=== PATIENT | female | born 1945 | race Caucasian/White ===

== ENCOUNTER 2019-05-12 23:38 | Inpatient (IN) ==
[2019-05-12] MEDS ORDERED: *HR* FentaNYL (PF) 100 MCG/2 ML VIAL IVP ONE (23:55)
[2019-05-12] MEDS ORDERED: Ondansetron 4 MG/2 ML VIAL IVP ONE (23:55)
--- NOTE | 2019-05-12 23:58 | Emergency Department Note ---
Disposition Clinical Impression: Renal colic on right side, Pyelonephritis Disposition: Admitted As Inpatient Condition: Fair Referrals: Muriel Bardales MD [Primary Care Provider] - Forms: ED Satisfaction Letter, Work/School Release Time of Disposition: 02:24 Back Pain HPI - General Chief Complaint: ED Abdominal Pain Stated Complaint: right flank pain Time Seen by Provider: 05/12/19 23:50 Source: patient, EMS Mode of arrival: EMS Limitations: no limitations Nursing Notes Reviewed: Yes Vital Signs Reviewed: Yes - History of Present Illness HPI Narrative: Patient with atraumatic right sided flank pain radiating to her right hem iabdomen that started approximately 90 minutes ago. States she has never had pain like this before. Associated nausea. She denies other acute GI/ symptoms. Pt Subjective Complaint: back pain Onset (ago): hour(s) Duration: constant Location: right flank Pain Severity: severe Improves with: none Worsens with: none - Related Data Home Medications Medication Instructions Recorded Confirmed Aspirin [Lo-Dose Aspirin EC] 81 mg PO DAILY 06/14/16 05/12/19 Atorvastatin Calcium [Lipitor] 80 mg PO HS 06/14/16 05/12/19 Clopidogrel [Plavix] 75 mg PO DAILY 06/14/16 05/12/19 Duloxetine HCl [Cymbalta] 60 mg PO DAILY 06/14/16 05/12/19 Gabapentin [Neurontin] 600 mg PO TID 06/14/16 05/12/19 Lansoprazole [Prevacid] 30 mg PO QAM 06/14/16 05/12/19 Levothyroxine [Synthroid] 50 mcg PO DAILY 06/14/16 05/12/19 Linagliptin [Tradjenta] 5 mg PO DAILY 06/14/16 05/12/19 Lisinopril [Zestril] 5 mg PO DAILY 06/14/16 05/12/19 Metoprolol XL (24 HR) Succ [Toprol 12.5 mg PO DAILY 06/14/16 05/12/19 XL] Nitroglycerin [Nitrostat] 0.4 mg SL Q5M PRN 06/14/16 05/12/19 Primidone [Mysoline] 50 mg PO BID 06/14/16 05/12/19 metFORMIN [Glucophage] 500 mg PO BIDWM 06/14/16 05/12/19 Allergies Allergy/AdvReac Type Severity Reaction Status Date / Time Iodinated Contrast- Oral and Allergy Anaphylaxis Verified 06/14/16 14:04 IV Dye [Iodinated Contrast Media - IV Dye] levofloxacin [From Levaquin] Allergy Hives Verified 06/14/16 14:04 All systems ED: reviewed and negative except as stated. Constitutional: Reports: as per HPI Eyes: Reports: as per HPI ENT ED: Reports: as per HPI Cardiovascular: Reports: as per HPI Gastrointestinal: Reports: abdominal pain, nausea Genitourinary: Reports: as per HPI Musculoskeletal: Reports: back pain Integumentary: Reports: as per HPI Neurological: Reports: as per HPI Psychiatric: Reports: as per HPI Endocrine: Reports: as per HPI Hematological/Lymphatic: Reports: as per HPI Allergic/Immunologic: Reports: as per HPI Past Medical History - Past Medical History Source: patient Medical history: Reports: diabetes, GERD, hyperlipidemia, hypertension Surgical history: Reports: appendectomy, coronary bypass (CABG), hysterectomy Psychiatric history: Reports: no psych history [employer]GRAM[employer] history: Reports: non-contributory - Social History Smoking Status: Never smoker Smokeless Tobacco Status: No Alcohol use: Reports: none Drug use: Reports: none Physical Exam Uncomfortable appearing - General Limitations: no limitations General appearance: alert, anxious - Head Head exam: atraumatic - Eye Eye exam: Present: normal appearance - ENT ENT exam: normal exam - Neck Neck exam: Present: normal inspection, full ROM - Chest Chest inspection: Present: normal inspection, symmetric chest wall rise - Respiratory Respiratory exam: Present: normal lung sounds bilaterally - Cardiovascular Cardiovascular exam: Present: regular rate, normal rhythm - Abdominal Exam Abdominal exam: Present: soft, tenderness (Mild right upper quadrant tenderness without guarding, rebound, rigidity) - Rectal Exam Rectal exam: Present: deferred - Extremities Exam Extremities exam: Present: other (Right lower extremity in a brace) - Neurological Exam Neurological exam: Present: alert, oriented X3, CN II-XII intact - Psychiatric Psychiatric exam: Present: anxious - Skin Skin exam: Present: warm, dry, intact Course Course Narrative: Patient presents to emergency department with right flank pain. Her symptoms are most consistent with renal colic. Noncontrast CT of her abdomen and pelvis ordered for further evaluation. The patient was offered analgesics. She will be closely reassessed - Reevaluation(s) Reevaluation #1: Patient improved. Patient requested ice chips Time: 01:32 Reevaluation #2: Test results discussed with patient. I am uncertain if her symptoms represent pyelonephritis, ureteral stricture, versus radiolucent stone or nonvisualized radiographic stone. I will treat empirically with antibiotics and admit Vital Signs Temperature 97.6 F 05/12/19 23:39 Pulse Rate 66 05/12/19 23:39 Respiratory Rate 14 05/12/19 23:39 Blood Pressure 143/91 05/12/19 23:39 O2 Sat by Pulse Oximetry 97 05/12/19 23:39 Temperature 97.6 F 05/12/19 23:39 Pulse Rate 65 05/13/19 00:44 Respiratory Rate 14 05/13/19 00:44 Blood Pressure 161/76 05/13/19 00:44 O2 Sat by Pulse Oximetry 96 05/13/19 00:44 Oxygen Delivery Oxygen Delivery Room Air Back Pain/Injury - Lab Data Lab results reviewed: Yes I reviewed the patient's lab results. Result diagrams: 05/13/19 00:55 05/13/19 00:55 Lab Results 05/13/19 05/13/19 05/13/19 Range/Units 00:41 00:55 00:55 WBC 10.5 (4.3-11.1) K/mcL RBC 3.56 L (3.82-4.97) M/mcL Hgb 10.2 L (11.5-15.4) g/dL Hct 31.9 L (35.3-44.9) % MCV 89.6 (83.0-100.0) fL MCH 28.7 (28.0-33.3) pg MCHC 32.0 (31.6-35.5) g/dL RDW 15.3 H (11.5-14.5) % Plt Count 207 (140-400) K/mcL MPV 9.1 L (9.4-12.4) fL Immature Gran % 0.5 (0-4) % Seg Neutrophils % 81.2 % Lymphocytes % 11.5 % Monocytes % 5.0 % Eosinophils % 1.3 % Basophils % 0.5 % Neutrophils # 8.5 (1.6-8.9) K/mcL Lymphocytes # 1.2 (0.6-4.6) K/mcL Monocytes # 0.5 (0.0-1.3) K/mcL Eosinophils # 0.1 (0.0-0.6) K/mcL Basophils # 0.1 (0.0-0.2) K/mcL Sodium 135 L (136-145) mEq/L Potassium 4.7 (3.5-5.1) mEq/L Chloride 105 (98-107) mEq/L Carbon Dioxide 19 L (23-29) mEq/L BUN 16 (8-23) mg/dL Creatinine 1.14 (0.60-1.20) mg/dL Est GFR ( Amer) 57 L (> 60) Est GFR (Non-Af Amer) 47 L (> 60) BUN/Creatinine Ratio 14 (6-26) Glucose 274 H (70-105) mg/dL Calculated Osmolality 291 (280-300) Calcium 9.1 (8.6-10.3) mg/dL Total Bilirubin 0.4 (0.3-1.0) mg/dL AST 22 (13-39) Units/L ALT 20 (7-52) Units/L Alkaline Phosphatase 74 (34-104) Units/L Serum Total Protein 7.6 (6.4-8.9) g/dL Albumin 3.9 (3.5-5.7) g/dL Globulin 3.7 H (2.4-3.5) g/dL Albumin/Globulin Ratio 1.1 (1.1-2.2) Lipase 81 (11-82) Units/L Urine Color Yellow (Yellow) Urine Clarity Turbid A (Clear) Urine pH 5.0 (5.0-8.0) pH Units Ur Specific [place] 1.028 H (1.010-1.025) Urine Protein Trace (Neg-Trace) mg/dL Urine Glucose (UA) 100 H (Normal) mg/dL Urine Ketones Negative (Negative) mg/dL Urine Blood Large H (Negative) Urine Nitrite Positive A (Negative) Urine Bilirubin Negative (Negative) Urine Urobilinogen Normal (Normal) mg/dL Ur Leukocyte Esterase Large H (Negative) Urine Microscopic RBC TNTC H (0-3) per hpf Urine Microscopic WBC TNTC H (0-3) per hpf Ur Squamous Epith Cells Many H (None-Few) per lpf Urine Bacteria Many H (None-Few) per hpf Hyaline Casts Few (None-Few) per lpf - Radiology Data Radiology results reviewed: Yes I reviewed the patient's radiology results.
[2019-05-13 00:55] LABS: Bilirubin,Urine Negative (Negative); Blood,Urine Large (Negative); Clarity,Urine Turbid (Clear); Color,Urine Yellow (Yellow); Glucose,Urine (UA) 100 mg/dL (Normal); Ketones,Urine Negative (Negative); Leukocyte Esterase,Urine Large (Negative); Nitrite,Urine Positive (Negative); Protein,Urine Trace mg/dL (Neg-Trace); Specific Gravity,Urine 1.028 (1.010-1.025); Urobilinogen,Urine Normal (Normal)
[2019-05-13 00:56] LABS: Bacteria,Urine Many per hpf (None-Few); Hyaline Casts,Urine Few per lpf (None-Few); RBC,Urine TNTC per hpf (0-3); Squamous Epithelial Cell,Urine Many per lpf (None-Few); WBC,Urine TNTC per hpf (0-3)
[2019-05-13 02:02] LABS: Basophils # 0.1 K/mcL (0.0-0.2); Basophils % 0.5 %; Eosinophils # 0.1 K/mcL (0.0-0.6); Eosinophils % 1.3 %; Hematocrit 31.9 % (35.3-44.9); Hemoglobin 10.2 g/dL (11.5-15.4); Immature Granulocytes % 0.5 % (0-4); Lymphocytes # 1.2 K/mcL (0.6-4.6); Lymphocytes % 11.5 %; Mean Corpuscular Hemoglobin 28.7 pg (28.0-33.3); Mean Corpuscular Volume 89.6 fL (83.0-100.0); Mean Platelet Volume 9.1 fL (9.4-12.4); Monocytes # 0.5 K/mcL (0.0-1.3); Neutrophils # 8.5 K/mcL (1.6-8.9); Platelet Count 207 K/mcL (140-400); Red Blood Count 3.56 M/mcL (3.82-4.97); Red Cell Distribution Width 15.3 % (11.5-14.5); Segmented Neutrophils % 81.2 %; White Blood Count 10.5 K/mcL (4.3-11.1)
[2019-05-13 02:04] LABS: Albumin 3.9 g/dL (3.5-5.7); Albumin/Globulin Ratio 1.1 (1.1-2.2); Bilirubin,Total 0.4 mg/dL (0.3-1.0); Calcium 9.1 mg/dL (8.6-10.3); Globulin 3.7 g/dL (2.4-3.5); Potassium 4.7 mEq/L (3.5-5.1); Total Protein 7.6 g/dL (6.4-8.9)
[2019-05-13] MEDS ORDERED: cefTRIAXone 1,000 MG in Water for inj. (sterile) 10 ML IVP ONE (02:22)
[2019-05-13] MEDS ORDERED: Ketorolac 15 MG/ML VIAL IVP ONE (03:07)
[2019-05-13] MEDS ORDERED: Acetaminophen 325 MG TABLET PO PRN (05:44)
[2019-05-13] MEDS ORDERED: Dextrose Gel 15 GM/37.5 ML TUBE PO PRN ×4 (05:44→18:03)
[2019-05-13] MEDS ORDERED: D5% in Water 1,000 ML IVC PRN ×2 (05:44→18:03)
[2019-05-13] MEDS ORDERED: Naloxone 0.4 MG/ML INJ IVP PRN ×2 (05:44→18:03)
[2019-05-13] MEDS ORDERED: Ondansetron 4 MG/2 ML VIAL IVP PRN ×2 (05:44→18:03)
[2019-05-13] MEDS ORDERED: *HR* HYDROcodone/Acet 5/325 mg TABLET PO PRN (05:44)
[2019-05-13] MEDS ORDERED: *HR* Dextrose 50 % in Water (Syg) 50 ML SYRINGE IVP PRN ×2 (05:44→18:03)
[2019-05-13] MEDS ORDERED: 0.9 % Sodium Chloride 1,000 ML IVC SCH (05:45)
[2019-05-13] MEDS ORDERED: Nitroglycerin 0.4 MG TAB.SUBL SL PRN ×2 (05:50→18:03)
--- NOTE | 2019-05-13 06:01 | Internal Med History&Physical ---
Date of Encounter: 05/13/19 Time of Encounter: 05:05 Internal Medicine - H&P: HPI Chief complaint: flank pain Admitted From: Emergency Dept Plans for Post Hospital Care: Home History of present illness: Ms. Ortiz is a 73 year old female who presents with complaints of abrupt onset of flank pain at 10 pm last night. Pain was associated with nausea, vomiting, dysuria, and fevers and chills. Pain was unbearable, and so she came to ER. Pain subsided ever since. Workup in ER revealed patient to have hydronephrosis with findings compatible with pyelonephritis and likely urolithiasis that was passed. CT imaging confirmed the hydronephrosis and inflammatory changes. There was no stone noted on CT, and it was presumed to have passed. She was therefore admitted to hospitalist service. Upon my assessment of the patient, patient still has some subtle flank pain but feels much better than she did prior to presentation in the ER. She reports she has had some subjective fevers and chills just since last night. She has had nausea and vomiting. She had no diarrhea. She has no cough. She has never had any kidney stones before. She does not have recurrent UTI. Past Med Surg Social Fam HX - Past Medical History Attestation: Yes The following information was validated with the patient. Source: patient, old records reviewed Medical history: diabetes, GERD, hyperlipidemia, hypertension Psychiatric history: no psych history - Past Surgical History Surgical History: appendectomy, coronary bypass (CABG), hysterectomy Additional surgical history: tonsillectomy, back stim - Social History Smoking Status: Never smoker Smokeless Tobacco Status: No Alcohol use: none Drug use: none Current living situation: Home, With Family Activity Level: Independent ambulation Recent Out of Country Travel Within the Last 8 Weeks: No - Family History Mother Living Status: Hx Family Cardiac Disorders: Yes (HTN) Hx Family Respiratory Disorders: No Hx Family Cancer: No Hx Family GI Disorders: No Hx Family Endocrine Disorder: Yes (DM) Hx Family Neuromuscular Disorders: No Hx Family Neurologic Disorders: No Hx Family HEENT Disorders: No Hx Family Autoimmune Disorders: No Father Living Status: Hx Family Cardiac Disorders: Yes (CAD) Hx Family Respiratory Disorders: No Hx Family Cancer: No Hx Family GI Disorders: No Hx Family Endocrine Disorder: No Hx Family Neuromuscular Disorders: No Hx Family Neurologic Disorders: No Hx Family HEENT Disorders: No Hx Family Autoimmune Disorders: No Internal Medicine - H&P: Meds Aspirin [Lo-Dose Aspirin EC] 81 mg PO DAILY 06/14/16 [History] Atorvastatin Calcium [Lipitor] 80 mg PO HS 06/14/16 [History] Clopidogrel [Plavix] 75 mg PO DAILY 06/14/16 [History] Duloxetine HCl [Cymbalta] 60 mg PO DAILY 06/14/16 [History] Gabapentin [Neurontin] 600 mg PO TID 06/14/16 [History] Lansoprazole [Prevacid] 30 mg PO QAM 06/14/16 [History] Levothyroxine [Synthroid] 50 mcg PO DAILY 06/14/16 [History] Linagliptin [Tradjenta] 5 mg PO DAILY 06/14/16 [History] Lisinopril [Zestril] 5 mg PO DAILY 06/14/16 [History] Metoprolol XL (24 HR) Succ [Toprol XL] 12.5 mg PO DAILY 06/14/16 [History] Nitroglycerin [Nitrostat] 0.4 mg SL Q5M PRN 06/14/16 [History] Primidone [Mysoline] 50 mg PO BID 06/14/16 [History] metFORMIN [Glucophage] 500 mg PO BIDWM 06/14/16 [History] Allergy/AdvReac Type Severity Reaction Status Date / Time Iodinated Contrast- Oral and Allergy Anaphylaxis Verified 06/14/16 14:04 IV Dye [Iodinated Contrast Media - IV Dye] levofloxacin [From Levaquin] Allergy Hives Verified 06/14/16 14:04 - Constitutional Constitutional: chills, fever(s), no night sweats - EENT Eyes: no blurry vision, no change in vision Ears: no ear pain, no tinnitus Nose, mouth and throat: no nasal congestion, no sinus pressure, no sore throat - Cardiovascular Cardiovascular ROS IM: diaphoresis, no chest pain, no dyspnea, no orthopnea, no syncope - Respiratory Respiratory: no cough, no dyspnea, no hemoptysis, no chest congestion, no excessive phlegm production, no pain with cough - Gastrointestinal Gastrointestinal: nausea, vomiting, no abdominal pain, no diarrhea, no hematemesis, no hematochezia, no melena - Genitourinary Genitourinary: dysuria, flank pain, no hematuria - Musculoskeletal Musculoskeletal ROS IM: no arthralgias, no back pain - Integumentary Integumentary IM: no rash, no jaundice - Neurological Neurological ROS: no dizziness, no focal weakness, no frequent falls, no headache(s) - Psychiatric Psychiatric: no anxiety, no confusion - Endocrine Endocrine IM: no polydipsia, no polyuria - Hematologic/Lymphatic Hematologic/Lymphatic: no lymphadenopathy - Allergic/Immunologic Allergic/Immunologic: no GI upset with certain foods - Constitutional Vitals: Temp Pulse Resp BP Pulse Ox 98.8 F 84 16 156/76 96 05/13/19 04:05 05/13/19 04:05 05/13/19 04:05 05/13/19 04:05 05/13/19 04:05 General appearance: Present: cooperative, mild distress, A&O X 3, pleasant, answers questions appropriately Exam: minimal flank pain currently - Head Head exam: Present: atraumatic, normal inspection - Eye Eye exam: Present: EOMI, PERRL. Absent: scleral icterus Pupils: Present: normal accommodation - ENT ENT exam: Present: mucous membranes dry, normal exam, normal oropharynx - Neck Neck exam general surgery: Present: full ROM, supple, trachea midline. Absent: tenderness, nuchal rigidity, thyromegaly - Respiratory Respiratory exam: Present: CTAB. Absent: chest wall tenderness, rales, rhonchi, wheezes - Cardiovascular Cardiovascular exam: Present: irregular rhythm, +S1, +S2. Absent: diastolic murmur, systolic murmur - GI/Abdominal GI/Abdominal exam: Present: normal bowel sounds, tenderness (mild right sided). Absent: guarding, hepatomegaly, mass, rebound, splenomegaly - Back Exam Back exam: Present: CVA tenderness (R), normal inspection. Absent: CVA tenderness (L) - Neurological Exam Neurological exam: Present: alert, CN II-XII intact, oriented X3, reflexes normal, no focal deficits, strengths equal and symetr throughout - Psychiatric Psychiatric exam: Present: normal affect, normal mood - Skin Skin exam: Present: dry, intact, warm Internal Med - H&P Results - Labs CBC & Chem 7: 05/13/19 00:55 05/13/19 00:55 Labs: Short CBC 05/13/19 Range/Units 00:55 WBC 10.5 (4.3-11.1) K/mcL Hgb 10.2 L (11.5-15.4) g/dL Hct 31.9 L (35.3-44.9) % Plt Count 207 (140-400) K/mcL Neutrophils # 8.5 (1.6-8.9) K/mcL BMP 05/13/19 00:55 Sodium 135 L Potassium 4.7 Chloride 105 Carbon Dioxide 19 L BUN 16 Creatinine 1.14 Glucose 274 H Calcium 9.1 Liver Function 05/13/19 Range/Units 00:55 Total Bilirubin 0.4 (0.3-1.0) mg/dL AST 22 (13-39) Units/L ALT 20 (7-52) Units/L Alkaline Phosphatase 74 (34-104) Units/L Albumin 3.9 (3.5-5.7) g/dL Urine 05/13/19 Range/Units 00:41 Urine Color Yellow (Yellow) Urine Clarity Turbid A (Clear) Urine pH 5.0 (5.0-8.0) pH Units Ur Specific [place] 1.028 H (1.010-1.025) Urine Protein Trace (Neg-Trace) mg/dL Urine Glucose (UA) 100 H (Normal) mg/dL - Impressions ITS Impressions Abdomen/Pelvis CT 05/13/19 23:54 IMPRESSION: Right hydronephrosis and right hydroureter without calcified ureteral stone. There is questionable increased soft tissue attenuation in the region of the right ureterovesical junction which could be related to edema. Correlation for recently passed stone versus obstruction by noncalcified stone, stricture or mass is recommended. Left nephrolithiasis. D/ / Yajaira Laughlin Cha, MD / Yajaira Laughlin Cha, MD Interpreting Provider: Yajaira Laughlin Cha, MD - Diagnostic Studies CT scan - abdomen Status: image reviewed by me (right hydronephrosis ) - Assessment and Plan (1) Pyelonephritis Current Visit: Yes Status: Acute Assessment and plan: 1. Culture urine. 2. Rocephin 2 grams IV daily. 3. Follow culture results and clinical picture. 4. IVF hydration and anti-emetics PRN. (2) Urolithiasis Current Visit: Yes Status: Suspected Assessment and plan: 1. Consult urology for suspected urolithiasis. 2. Need follow up regarding the hydronephrosis. 3. Care as above. Qualifiers: Urinary calculus location: other lower urinary tract location Qualified Code(s): N21.8 - Other lower urinary tract calculus (3) CAD (coronary artery disease) Current Visit: Yes Status: Chronic Assessment and plan: 1. NO signs of active angina. 2. Continue home meds as appropriate and monitor clinically. Qualifiers: Coronary Disease-Associated Artery/Lesion type: bypass graft [place] vs. transplanted heart: [place] heart Associated angina: without angina Qualified Code(s): I25.810 - Atherosclerosis of coronary artery bypass graft(s) without angina pectoris (4) DM2 (diabetes mellitus, type 2) Current Visit: Yes Status: Chronic Assessment and plan: 1. Hold oral home meds and order SSI. 2. Monitor glucose and adjust insulin dosing as necessary. Qualifiers: Diabetes mellitus continuous churn buttermaker insulin use: without jail use Diabetes mellitus complication status: without complication Qualified Code(s): E11.9 - Type 2 diabetes mellitus without complications (5) DVT prophylaxis Current Visit: Yes Status: Acute Assessment and plan: 1. EPCD's.
[2019-05-13] MEDS ORDERED: Aspirin Enteric Coated 81 MG Tablet PO SCH (09:00)
[2019-05-13] MEDS ORDERED: Metoprolol XL (24 HR) Succ 25 MG TAB.ER.24H PO SCH (09:00)
[2019-05-13] MEDS ORDERED: Primidone 50 MG TABLET PO SCH (09:00)
[2019-05-13] MEDS ORDERED: Gabapentin 300 MG CAPSULE PO SCH (09:00)
--- NOTE | 2019-05-13 09:37 | Urology - Consult Note ---
<Mony Frye N - Last Filed: 05/13/19 09:33> Date of Encounter: 05/13/19 Time of Encounter: 09:33 - Assessment and Plan (1) Hydronephrosis, right Current Visit: Yes Status: Acute Assessment and plan: Patient is a 73-year-old female who presents with right hydroureteronephrosis, right flank pain and urinary tract infection. Vital signs are stable but febrile to 101.3F. urine culture has been collected. Patient is receiving IV Rocephin. We discussed surgical risks and benefits for urinary diversion by ureteral stent placement, and patient verbalized understanding. Consent has been signed, and she is prepared undergo a cystoscopy, right retrograde pyelogram and right ureteral stent placement. Patient states she ate a bite of toast approximately an hour ago, and she will remain nothing by mouth starting now. (2) Right flank pain Current Visit: Yes Status: Acute Assessment and plan: Patient is a 73-year-old female who presents with sudden onset of right flank pain. Patient has no prior history of renal stones, and she underwent a CT of the abdomen and pelvis revealing right hydroureteronephrosis without any identifiable calculi in the kidney, ureter or bladder. CT suggestive of recently passed stone versus edema or possible mass at the UVJ. Given the patient's febrile presentation, intractable pain and hydronephrosis, it was decided to proceed with ureteral stent placement. (3) Urinary tract infection Current Visit: Yes Status: Acute Assessment and plan: Patient is a 73-year-old female who presents with a nitrite positive urinalysis. Urine was not sent from the emergency department for culture, and I will place that order now. I will also place orders for blood cultures as well. Patient is receiving IV Rocephin. Patient is febrile to 101.3F. Qualifiers: Urinary tract infection type: site unspecified Hematuria presence: without hematuria Qualified Code(s): N39.0 - Urinary tract infection, site not specified Urology CN:HPI Consult date: 05/13/19 Reason for consult Urology: Hydronephrosis (right; right flank pain, fever) Requesting physician: Collin Starks History of present illness: Patient is a 73-year-old female who presents with severe right flank pain and right hydronephrosis. Patient reports a 1 day history of severe right-sided flank pain of sudden onset. Patient presented to the emergency department where she underwent a CT of the abdomen and pelvis revealing right hydronephrosis and hydroureter as well as an area of increased attenuation of the right UVJ. Patient has no prior history of renal stones, and she is unaware of any family history of renal stones. Patient denies any urinary frequency, urgency, dysuria, frequent urinary tract infections or gross hematuria. On my evaluation, patient is in a moderate amount of pain, and she is requesting pain medication. Patient denies any nausea, vomiting, chest pain, dyspnea. Past Med Surg Social Fam HX - Past Medical History Medical history: diabetes, GERD, hyperlipidemia, hypertension Psychiatric history: no psych history - Past Surgical History Surgical History: appendectomy, coronary bypass (CABG), hysterectomy Additional surgical history: tonsillectomy, back stim - Social History Smoking Status: Never smoker Smokeless Tobacco Status: No Alcohol use: none Drug use: none - Family History Mother Living Status: Hx Family Cardiac Disorders: Yes (HTN) Hx Family Respiratory Disorders: No Hx Family Cancer: No Hx Family GI Disorders: No Hx Family Endocrine Disorder: Yes (DM) Hx Family Neuromuscular Disorders: No Hx Family Neurologic Disorders: No Hx Family HEENT Disorders: No Hx Family Autoimmune Disorders: No Father Living Status: Hx Family Cardiac Disorders: Yes (CAD) Hx Family Respiratory Disorders: No Hx Family Cancer: No Hx Family GI Disorders: No Hx Family Endocrine Disorder: No Hx Family Neuromuscular Disorders: No Hx Family Neurologic Disorders: No Hx Family HEENT Disorders: No Hx Family Autoimmune Disorders: No Medications and Allergies Aspirin [Lo-Dose Aspirin EC] 81 mg PO DAILY 06/14/16 [History] Atorvastatin Calcium [Lipitor] 80 mg PO HS 06/14/16 [History] Clopidogrel [Plavix] 75 mg PO DAILY 06/14/16 [History] Duloxetine HCl [Cymbalta] 60 mg PO DAILY 06/14/16 [History] Gabapentin [Neurontin] 600 mg PO TID 06/14/16 [History] Lansoprazole [Prevacid] 30 mg PO QAM 06/14/16 [History] Levothyroxine [Synthroid] 50 mcg PO DAILY 06/14/16 [History] Linagliptin [Tradjenta] 5 mg PO DAILY 06/14/16 [History] Lisinopril [Zestril] 5 mg PO DAILY 06/14/16 [History] Metoprolol XL (24 HR) Succ [Toprol XL] 12.5 mg PO DAILY 06/14/16 [History] Nitroglycerin [Nitrostat] 0.4 mg SL Q5M PRN 06/14/16 [History] Primidone [Mysoline] 50 mg PO BID 06/14/16 [History] metFORMIN [Glucophage] 500 mg PO BIDWM 06/14/16 [History] Allergy/AdvReac Type Severity Reaction Status Date / Time Iodinated Contrast- Oral and Allergy Anaphylaxis Verified 06/14/16 14:04 IV Dye [Iodinated Contrast Media - IV Dye] levofloxacin [From Levaquin] Allergy Hives Verified 06/14/16 14:04 Review of Systems - Constitutional chills, fever(s), weakness - EENT Nose, mouth and throat: headache(s), no dizziness - Cardiovascular no chest pain, no diaphoresis, no dyspnea - Respiratory no cough, no dyspnea - Gastrointestinal abdominal pain, nausea, no vomiting - Genitourinary Genitourinary: flank pain, no difficulty urinating, no dysuria, no hematuria, no urinary frequency, no urinary hesitancy, no urinary incontinence, no urinary urgency - Musculoskeletal back pain, no muscle weakness - Integumentary no erythema, no rash - Neurological no confusion, no syncope - Psychiatric no anxiety, no confusion - Hematologic/Lymphatic easy bleeding, easy bruising - Allergic/Immunologic no throat swelling, no wheezing Exam Initial Vital Signs Temp Pulse Resp BP Pulse Ox 97.6 F 66 14 143/91 97 05/12/19 23:39 05/12/19 23:39 05/12/19 23:39 05/12/19 23:39 05/12/19 23:39 - General physical appearance Present: no distress, moderate pain - Eyes Present: PERRL, normal ocular movement - ENT Present: normal nares, no congestion - Neck Present: no masses, trachea midline, no lymphadenopathy - Respiratory Present: normal respiratory effort - Cardiovascular Cardiovascular exam IM: RRR - Abdomen Abdomen: Present: soft, non tender. Absent: distended - Genitourinary Present: other (Right CVAT) - Integumentary Present: no rash, no abnormal pigmentation - Neurologic Present: normal coordination - Musculoskeletal Present: other (Normal posture) Urology Results - Labs 05/13/19 00:55 05/13/19 00:55 Abnormal lab results RBC 3.56 M/mcL (3.82-4.97) L 05/13/19 00:55 Hgb 10.2 g/dL (11.5-15.4) L 05/13/19 00:55 Hct 31.9 % (35.3-44.9) L 05/13/19 00:55 RDW 15.3 % (11.5-14.5) H 05/13/19 00:55 MPV 9.1 fL (9.4-12.4) L 05/13/19 00:55 Sodium 135 mEq/L (136-145) L 05/13/19 00:55 Carbon Dioxide 19 mEq/L (23-29) L 05/13/19 00:55 Est GFR ( Amer) 57 (> 60) L 05/13/19 00:55 Est GFR (Non-Af Amer) 47 (> 60) L 05/13/19 00:55 Glucose 274 mg/dL (70-105) H 05/13/19 00:55 3.7 g/dL (2.4-3.5) H 05/13/19 00:55 Turbid (Clear) A 05/13/19 00:41 Ur Specific [place] 1.028 (1.010-1.025) H 05/13/19 00:41 100 mg/dL (Normal) H 05/13/19 00:41 Large (Negative) H 05/13/19 00:41 Positive (Negative) A 05/13/19 00:41 Ur Leukocyte Esterase Large (Negative) H 05/13/19 00:41 TNTC per hpf (0-3) H 05/13/19 00:41 TNTC per hpf (0-3) H 05/13/19 00:41 Ur Squamous Epith Cells Many per lpf (None-Few) H 05/13/19 00:41 Many per hpf (None-Few) H 05/13/19 00:41 Diabetes panel 05/13/19 Range/Units 00:55 Sodium 135 L (136-145) mEq/L Potassium 4.7 (3.5-5.1) mEq/L Chloride 105 (98-107) mEq/L Carbon Dioxide 19 L (23-29) mEq/L BUN 16 (8-23) mg/dL Creatinine 1.14 (0.60-1.20) mg/dL Glucose 274 H (70-105) mg/dL Calcium 9.1 (8.6-10.3) mg/dL AST 22 (13-39) Units/L ALT 20 (7-52) Units/L Alkaline Phosphatase 74 (34-104) Units/L Albumin 3.9 (3.5-5.7) g/dL Calcium panel 05/13/19 Range/Units 00:55 Calcium 9.1 (8.6-10.3) mg/dL Albumin 3.9 (3.5-5.7) g/dL Pituitary panel 05/13/19 Range/Units 00:55 Sodium 135 L (136-145) mEq/L Potassium 4.7 (3.5-5.1) mEq/L Chloride 105 (98-107) mEq/L Carbon Dioxide 19 L (23-29) mEq/L BUN 16 (8-23) mg/dL Creatinine 1.14 (0.60-1.20) mg/dL Glucose 274 H (70-105) mg/dL Calcium 9.1 (8.6-10.3) mg/dL Adrenal panel 05/13/19 Range/Units 00:55 Sodium 135 L (136-145) mEq/L Potassium 4.7 (3.5-5.1) mEq/L Chloride 105 (98-107) mEq/L Carbon Dioxide 19 L (23-29) mEq/L BUN 16 (8-23) mg/dL Creatinine 1.14 (0.60-1.20) mg/dL Glucose 274 H (70-105) mg/dL Calcium 9.1 (8.6-10.3) mg/dL Total Bilirubin 0.4 (0.3-1.0) mg/dL AST 22 (13-39) Units/L ALT 20 (7-52) Units/L Alkaline Phosphatase 74 (34-104) Units/L Albumin 3.9 (3.5-5.7) g/dL All other labs normal. - Imaging CT scan - abdomen: report reviewed, image reviewed CT scan - pelvis: report reviewed, image reviewed Consult Discharge Plan - Plan Referrals: Muriel Bardales MD [Primary Care Provider] - <Curtis Ortiz - Last Filed: 05/13/19 12:53> Date of Encounter: 05/13/19 - Assessment and Plan (1) Renal colic on right side Current Visit: Yes Status: Acute Assessment and plan: Patient seen and examined in conjunction with physician assistant research scientist. In the interval time. The patient's blood pressure dropped to 50/30. Combined with her temperature and hydronephrosis we suspected she was developing urosepsis and potentially septic shock. The decision was made to cotton her to the operating room for urgent surgical intervention. See operative note for details regarding stent placement. Exam Initial Vital Signs Temp Pulse Resp BP Pulse Ox 97.6 F 66 14 143/91 97 05/12/19 23:39 05/12/19 23:39 05/12/19 23:39 05/12/19 23:39 05/12/19 23:39 Urology Results - Labs 05/13/19 00:55 05/13/19 00:55 Abnormal lab results RBC 3.56 M/mcL (3.82-4.97) L 05/13/19 00:55 Hgb 10.2 g/dL (11.5-15.4) L 05/13/19 00:55 Hct 31.9 % (35.3-44.9) L 05/13/19 00:55 RDW 15.3 % (11.5-14.5) H 05/13/19 00:55 MPV 9.1 fL (9.4-12.4) L 05/13/19 00:55 Sodium 135 mEq/L (136-145) L 05/13/19 00:55 Carbon Dioxide 19 mEq/L (23-29) L 05/13/19 00:55 Est GFR ( Amer) 57 (> 60) L 05/13/19 00:55 Est GFR (Non-Af Amer) 47 (> 60) L 05/13/19 00:55 Glucose 274 mg/dL (70-105) H 05/13/19 00:55 3.7 g/dL (2.4-3.5) H 05/13/19 00:55 Turbid (Clear) A 05/13/19 00:41 Ur Specific [place] 1.028 (1.010-1.025) H 05/13/19 00:41 100 mg/dL (Normal) H 05/13/19 00:41 Large (Negative) H 05/13/19 00:41 Positive (Negative) A 05/13/19 00:41 Ur Leukocyte Esterase Large (Negative) H 05/13/19 00:41 TNTC per hpf (0-3) H 05/13/19 00:41 TNTC per hpf (0-3) H 05/13/19 00:41 Ur Squamous Epith Cells Many per lpf (None-Few) H 05/13/19 00:41 Many per hpf (None-Few) H 05/13/19 00:41 Diabetes panel 05/13/19 Range/Units 00:55 Sodium 135 L (136-145) mEq/L Potassium 4.7 (3.5-5.1) mEq/L Chloride 105 (98-107) mEq/L Carbon Dioxide 19 L (23-29) mEq/L BUN 16 (8-23) mg/dL Creatinine 1.14 (0.60-1.20) mg/dL Glucose 274 H (70-105) mg/dL Calcium 9.1 (8.6-10.3) mg/dL AST 22 (13-39) Units/L ALT 20 (7-52) Units/L Alkaline Phosphatase 74 (34-104) Units/L Albumin 3.9 (3.5-5.7) g/dL Calcium panel 05/13/19 Range/Units 00:55 Calcium 9.1 (8.6-10.3) mg/dL Albumin 3.9 (3.5-5.7) g/dL Pituitary panel 05/13/19 Range/Units 00:55 Sodium 135 L (136-145) mEq/L Potassium 4.7 (3.5-5.1) mEq/L Chloride 105 (98-107) mEq/L Carbon Dioxide 19 L (23-29) mEq/L BUN 16 (8-23) mg/dL Creatinine 1.14 (0.60-1.20) mg/dL Glucose 274 H (70-105) mg/dL Calcium 9.1 (8.6-10.3) mg/dL Adrenal panel 05/13/19 Range/Units 00:55 Sodium 135 L (136-145) mEq/L Potassium 4.7 (3.5-5.1) mEq/L Chloride 105 (98-107) mEq/L Carbon Dioxide 19 L (23-29) mEq/L BUN 16 (8-23) mg/dL Creatinine 1.14 (0.60-1.20) mg/dL Glucose 274 H (70-105) mg/dL Calcium 9.1 (8.6-10.3) mg/dL Total Bilirubin 0.4 (0.3-1.0) mg/dL AST 22 (13-39) Units/L ALT 20 (7-52) Units/L Alkaline Phosphatase 74 (34-104) Units/L Albumin 3.9 (3.5-5.7) g/dL All other labs normal.
[2019-05-13] MEDS: Insulin LISPRO 300 UNITS/3 ML VIAL SQ SCH ×3 (11:22→21:08)
[2019-05-13] MEDS ORDERED: *HR* FentaNYL (PF) 100 MCG/2 ML VIAL ONE (11:58)
[2019-05-13] MEDS ORDERED: *HR* Propofol 200 MG/20 ML VIAL IVP ONE (11:59)
[2019-05-13] MEDS ORDERED: Lidocaine -MPF 2% 2 ML VIAL ONE ×2 (11:59→12:21)
[2019-05-13] MEDS ORDERED: cefTRIAXone 2,000 MG in Water for inj. (sterile) 20 ML IVP SCH (12:00)
--- NOTE | 2019-05-13 12:00 | Anesthesia Evaluation PreOp ---
Date of Encounter: 05/13/19 Time of Encounter: 12:15 - Past History Planned Operation: cysto, stent placement Cardiac History: HTN, Hyperlipidemia, Cardiac Surgery, Other (CAD) PATIENT RELATIONS COORDINATOR History: Denies Any Significant HX Other Medical History: Diabetes Type II Anesthesia History: No Prior Anesthetic Complications (unknown), Past Anesthesia Alcohol Use: none Drug use: none Medications and Allergies Aspirin [Lo-Dose Aspirin EC] 81 mg PO DAILY 06/14/16 [History] Atorvastatin Calcium [Lipitor] 80 mg PO HS 06/14/16 [History] Clopidogrel [Plavix] 75 mg PO DAILY 06/14/16 [History] Duloxetine HCl [Cymbalta] 60 mg PO DAILY 06/14/16 [History] Gabapentin [Neurontin] 600 mg PO TID 06/14/16 [History] Lansoprazole [Prevacid] 30 mg PO QAM 06/14/16 [History] Levothyroxine [Synthroid] 50 mcg PO DAILY 06/14/16 [History] Linagliptin [Tradjenta] 5 mg PO DAILY 06/14/16 [History] Lisinopril [Zestril] 5 mg PO DAILY 06/14/16 [History] Metoprolol XL (24 HR) Succ [Toprol XL] 12.5 mg PO DAILY 06/14/16 [History] Nitroglycerin [Nitrostat] 0.4 mg SL Q5M PRN 06/14/16 [History] Primidone [Mysoline] 50 mg PO BID 06/14/16 [History] metFORMIN [Glucophage] 500 mg PO BIDWM 06/14/16 [History] Allergy/AdvReac Type Severity Reaction Status Date / Time Iodinated Contrast- Oral and Allergy Anaphylaxis Verified 06/14/16 14:04 IV Dye [Iodinated Contrast Media - IV Dye] levofloxacin [From Levaquin] Allergy Hives Verified 06/14/16 14:04 - Meds/Allergy Pre-op Review Medications Reviewed: Yes Allergies Reviewed: Yes Beta Blockers on Current Med List: No Anesthesia Results - Labs 05/13/19 00:55 05/13/19 00:55 - Imaging Additional studies: dobutamine stress: Impressions: Stress ECG is negative for ischemia. No segmental wall motion abnormalities at rest or during stress. Appropriate increase LVEF with stress from 65% to >75%. nuclear stress: Findings: Stress Note * Resting ECG demonstrated normal sinus rhythm with diffuse nonspecific ST abnormalities and poor R wave progression. * Pharmacologic stress ECG is negative for ischemia at level of heart rate achieved. No appreciable change in pharmacologic stress ECG from baseline. * Occasional PVCs and ventricular couplets noted during testing. * Patient had no chest pain during stress. Hemodynamic responses * Normal hemodynamic responses to pharmacologic stress. Study Quality * Study quality is average. Gated EF > 70% * Gated EF > 70%. Left Ventricle * The left ventricle is not dilated. TID * No evidence of transient ischemic dilatation. Lung Uptake * There is no evidence of increase lung uptake. NORMALS * Normal wall motion. PERFUSION * There is a mild-moderate intensity fixed perfusion defect involving the mid-distal anterior and anterolateral carbajal. Wall motion is normal. * Other segments demonstrate normal rest and stress perfusion. Anesthesia Exam Selected Entries 05/13/19 07:23 Temperature 101.3 F H Pulse Rate 93 Respiratory Rate 18 Blood Pressure 93/61 Blood Pressure Position HOB Elevated O2 Sat by Pulse Oximetry 96 Oxygen Delivery Method Nasal Cannula - HEENT Pupil (Motor): EOMI Mallampati: III Teeth: Missing Oral Opening: Greater than 3 - PATIENT RELATIONS COORDINATOR LOC: Oriented PATIENT RELATIONS COORDINATOR Motor: Normal RUE, Normal LUE, Normal RLE, Normal LLE, Normal Face PATIENT RELATIONS COORDINATOR Sensory: Normal: RUE, LUE, RLE, LLE, Face - Cardiac Rhythm: Regular Murmur: None - Pulmonary Breath Sounds: bilateral Clear Respiratory Effort: Symmetrical - Additional Findings Systolic pressures currently in the 50's, spokew with Dr Ortiz and he feels she is uroseptic and feels she absolutely has to get this stent. Anesthesia Assess/Plan ASA Score: 4, E Level of consciousness: Cooperative, Oriented Anesthetic Plan: General Monitoring Plan: Standard Monitors, A-Line, CVC Recovery Plan: ICU (Patient will need GA, cecil, CVC and ICU. Very high risk for complications.)
[2019-05-13] MEDS ORDERED: *HR* Succinylcholine 200 MG/10 ML VIAL IVP ONE (12:01)
[2019-05-13] MEDS ORDERED: 0.9 % Sodium Chloride 500 ML IVC ONE (12:01)
[2019-05-13] MEDS ORDERED: Isovue-300 50 ML VIAL ONE (12:01)
[2019-05-13] MEDS ORDERED: Dexamethasone 4 MG/ML VIAL ONE (12:02)
[2019-05-13] MEDS ORDERED: Ondansetron 4 MG/2 ML VIAL ONE (12:02)
[2019-05-13] MEDS ORDERED: Heparin 1,000 UNITS/500 mL 500 ML ONE (12:07)
[2019-05-13] MEDS ORDERED: *HR* Vasopressin 20 UNIT/ML VIAL ONE (12:09)
[2019-05-13] MEDS ORDERED: *HR* Phenylephrine 10 MG/ML VIAL ONE (12:10)
[2019-05-13] MEDS ORDERED: *HR* PHENYLEPHRINE 1,000 MCG/10 ML SYRINGE IVP ONE (12:18)
[2019-05-13] MEDS ORDERED: EPINEPHrine 1 MG/ML VIAL ONE ×2 (12:18→13:25)
[2019-05-13] MEDS ORDERED: *HR* Rocuronium Bromide 50 MG/5 ML VIAL ONE (12:21)
[2019-05-13] MEDS ORDERED: *HR* Etomidate 40 MG/20 ML VIAL IVP ONE (12:21)
[2019-05-13] MEDS ORDERED: Acetaminophen IV 1,000 MG/100 ML INFUS..BTL ONE (12:34)
--- NOTE | 2019-05-13 12:41 | Event Note ---
Date of Encounter: 05/13/19 Time of Encounter: 07:38 Ms. Ortiz is a 73 year old female who presents with complaints of abrupt onset of flank pain at 10 pm last night. Pain was associated with nausea, vomiting, dysuria, and fevers and chills. currently pain is controlled. denies Chest pain, SOB, Nausea or vomiting. VS reviewed NAD, speaks in full sentences, laying flat obese, moves all extremities RRR s1 and s2 CLTA A/P acute pyelonephritis right sided hydronephrosis with urolithiasis ceftriaxone changed to zosyn continue IVF urology consulted
--- NOTE | 2019-05-13 12:56 | Operative Note ---
Date of procedure: 05/13/19 Pre-op diagnosis: Hydronephrosis right, fever, hypotension Post-op diagnosis: same Procedure: Cystoscopy. Right retrograde pyelogram. Right double-J stent placement Anesthesia: GETA Surgeon: Curtis Ortiz Was there an front end assistant present: No Estimated blood loss (cc): 0 Specimen: None Condition: stable Disposition: PACU Procedure in Detail: Patient with right hydronephrosis. Fever. Hypotension. Concern for urosepsis with septic shock. Emergent bring back to the operating room for stent placement. PROCEDURE IN DETAIL: Patient was taken back to the operating room, positioned supine on the operating table. Anesthesia was applied without complication. They were moved into dorsal lithotomy. Careful attention was maintained to cushion all pressure points for patient's safety. They were prepped and draped in sterile fashion. Time-out was performed with the proper patient and procedure. A 21-[place] rigid cystoscope was inserted into the bladder without difficulty. Systematic examination of the bladder revealed significant cystitis, floating debris. The right ureteral orifice was edematous and erythematous but no obvious malignancy was seen in the area. The right ureteral orifice was cannulated using a 5-[place] ureteral Catheter and a retrograde pyelogram was performed using Isovue. Because of the OR bed I was not able to perform a full retrograde pyelogram and could only visualize the distal ureter. The distal ureter had significant hydroureter. I placed a zip wire and then later a 6 x 26 ureteral stent. There was significant purulence from the right system after placement of the stent. 18-[place] Kemp catheter was placed into the procedure.
[2019-05-13] MEDS ORDERED: *HR* Midazolam HCl 2 MG/2 ML VIAL ONE (13:06)
--- NOTE | 2019-05-13 13:24 | Anesthesia Procedures ---
Date of Encounter: 05/13/19 Time of Encounter: 12:20 Procedures: Anesthesia - Arterial Line Consent obtained: verbal consent Time out performed: Yes Local Anesthetic: Lidocaine 1% Amount of Anesthetic used (mls): 1 Size (Gauge): 20 Length (inches): 1 3/4 Technique Used: sterile prep, guide wire technique, direct puncture technique Post-Procedure: line taped into place, dry sterile dressing placed Patient tolerated procedure: well, no complications Complications: none Site: Radial L
--- NOTE | 2019-05-13 13:27 | Anesthesia Procedures ---
Date of Encounter: 05/13/19 Time of Encounter: 13:00 Procedures: Anesthesia - Central Line Placement Right IJ Consent obtained: verbal consent Time out performed: Yes Patient placed on monitor/pulse ox: Yes MD prep: mask, gown, gloves Central line prep: Chlorhexidine scrub Local Anesthetic Used: Lidocaine 1% (3) Amount of Anesthetics Used (mls): 3 Ultrasound used for placement: Yes Technique: Seldinger Lumen Inserted: triple Size / Length: 7 Fr / 16 cm Post procedure: sutured in place Post procedure x-ray: tip of catheter in good position Patient tolerated procedure: well Complications: none Comments: indication: need for vasopressor agents. Original plan was to place prior to surgery but patient appeared to be doing well hemodynamically. After surgery her pressures declined and required vasopressors so CVC placed.
[2019-05-13] MEDS ORDERED: Phenylephrine 10 MG in D5% in Water 250 ML IVC SCH (13:30)
[2019-05-13] MEDS ORDERED: Piperacillin/Tazobactam 3.375 GM in 0.9 % Sodium Chloride Mini Bag 100 ML IVPB SCH (16:00)
--- NOTE | 2019-05-13 17:29 | Anesthesia Evaluation Post Op ---
Date of Encounter: 05/13/19 Time of Encounter: 17:28 - Vital Signs Vital Signs: Last Vital Signs Temp 98.9 F 05/13/19 17:09 Pulse 67 05/13/19 17:09 Resp 16 05/13/19 17:09 BP 118/48 05/13/19 17:09 Pulse Ox 96 05/13/19 17:09 - Lungs Lungs: Clear Ascult./Percussion - Airway Airway: Non-obstructed - Cardiovascular Regular Rate - Mental Status Mental Status: Alert & Oriented, Answers Appropriately - Pain Pain Scale: 2 - Nausea Vomiting Nausea Vomiting: Not Present - Hydration Hydration: NPO - Discharge PostOp Status: Transfer Patient to floor (ICU)
[2019-05-13 18:53] LABS: Bilirubin,Urine Negative (Negative); Blood,Urine Large (Negative); Glucose,Urine (UA) 500 mg/dL (Normal); Ketones,Urine Negative (Negative); Leukocyte Esterase,Urine Moderate (Negative); Nitrite,Urine Negative (Negative); Protein,Urine 30 mg/dL (Neg-Trace); Specific Gravity,Urine 1.005 (1.010-1.025); Urobilinogen,Urine Normal (Normal)
[2019-05-13 18:54] LABS: Bacteria,Urine None Seen per hpf (None-Few); Color,Urine Light Yellow (Yellow); Hyaline Casts,Urine None Seen per lpf (None-Few); RBC,Urine 0-3 per hpf (0-3); Squamous Epithelial Cell,Urine Many per lpf (None-Few); WBC,Urine 30-50 per hpf (0-3)
[2019-05-13 18:55] LABS: Clarity,Urine Clear (Clear)
[2019-05-13] MEDS ORDERED: 0.9 % Sodium Chloride 1,000 ML ONE (19:20)
[2019-05-13] MEDS: 0.9 % Sodium Chloride 1,000 ML IVC SCH (19:20)
[2019-05-13] MEDS: Gabapentin 300 MG CAPSULE PO SCH (20:57)
[2019-05-13] MEDS: Primidone 50 MG TABLET PO SCH (20:58)
[2019-05-13] MEDS: Phenylephrine 10 MG in D5% in Water 250 ML IVC SCH (22:00)
[2019-05-13] MEDS: Piperacillin/Tazobactam 3.375 GM in 0.9 % Sodium Chloride Mini Bag 100 ML IVPB SCH (23:22)
[2019-05-14] MEDS: Insulin LISPRO 300 UNITS/3 ML VIAL SQ SCH ×5 (00:14→20:45)
[2019-05-14] MEDS ORDERED: 0.9 % Sodium Chloride 1,000 ML ONE (03:19)
[2019-05-14] MEDS: 0.9 % Sodium Chloride 1,000 ML IVC SCH ×3 (03:20→15:45)
[2019-05-14 03:23] LABS: INR 1.2; Prothrombin Time 13.6 Seconds (9.4-12.1)
[2019-05-14 03:26] LABS: Activated Partial Thrombo Time 27.5 Seconds (26.0-36.0)
[2019-05-14 03:27] LABS: Basophils % 0.2 %; Eosinophils % 0.2 %; Hematocrit 27.6 % (35.3-44.9); Hemoglobin 8.9 g/dL (11.5-15.4); Immature Granulocytes % 0.6 % (0-4); Lymphocytes # 1.3 K/mcL (0.6-4.6); Lymphocytes % 10.3 %; Mean Corpuscular HGB Conc 32.2 g/dL (31.6-35.5); Mean Corpuscular Hemoglobin 28.9 pg (28.0-33.3); Mean Corpuscular Volume 89.6 fL (83.0-100.0); Mean Platelet Volume 8.6 fL (9.4-12.4); Monocytes % 7.8 %; Neutrophils # 9.9 K/mcL (1.6-8.9); Platelet Count 160 K/mcL (140-400); Red Blood Count 3.08 M/mcL (3.82-4.97); Red Cell Distribution Width 15.7 % (11.5-14.5); Segmented Neutrophils % 80.9 %; White Blood Count 12.2 K/mcL (4.3-11.1)
[2019-05-14 03:39] LABS: Albumin 3.2 g/dL (3.5-5.7); Bilirubin,Total 0.4 mg/dL (0.3-1.0); Calcium 8.4 mg/dL (8.6-10.3); Globulin 3.1 g/dL (2.4-3.5); Magnesium 1.6 mg/dL (1.6-2.6); Potassium 4.1 mEq/L (3.5-5.1); Total Protein 6.3 g/dL (6.4-8.9)
[2019-05-14] MEDS ORDERED: Insulin LISPRO 300 UNITS/3 ML VIAL SQ SCH (07:30)
[2019-05-14] MEDS: *HR* HYDROcodone/Acet 5/325 mg TABLET PO PRN (08:40)
[2019-05-14] MEDS: Aspirin Enteric Coated 81 MG Tablet PO SCH (08:41)
[2019-05-14] MEDS: Gabapentin 300 MG CAPSULE PO SCH ×2 (08:41→20:45)
[2019-05-14] MEDS: Primidone 50 MG TABLET PO SCH ×2 (08:42→20:45)
[2019-05-14] MEDS: Piperacillin/Tazobactam 3.375 GM in 0.9 % Sodium Chloride Mini Bag 100 ML IVPB SCH ×3 (08:45→23:15)
--- NOTE | 2019-05-14 08:48 | Urology Progress Note ---
Date of Encounter: 05/14/19 Time of Encounter: 08:46 - Assessment and Plan (1) Renal colic on right side Current Visit: Yes Status: Acute Assessment and plan: Status post stent placement for hydronephrosis and suspected sepsis. Continue follow urine cultures. Continue broad-spectrum antibiotics. Patient states there is some decrease of right-sided flank/abdominal discomfort. Progress Note Subjective: feels better, still having pain Narrative: patient stable overnight but still on pressors Objective Initial Vital Signs Temp Pulse Resp BP Pulse Ox 97.6 F 66 14 143/91 97 05/12/19 23:39 05/12/19 23:39 05/12/19 23:39 05/12/19 23:39 05/12/19 23:39 - General physical appearance Present: no distress, no pain - Abdomen Present: soft - Additional Exam Kemp catheter in place draining clear urine - Labs 05/14/19 03:06 05/14/19 03:06 Diabetes panel 05/14/19 Range/Units 03:06 Sodium 138 (136-145) mEq/L Potassium 4.1 (3.5-5.1) mEq/L Chloride 108 H (98-107) mEq/L Carbon Dioxide 20 L (23-29) mEq/L BUN 17 (8-23) mg/dL Creatinine 1.15 (0.60-1.20) mg/dL Glucose 207 H (70-105) mg/dL Calcium 8.4 L (8.6-10.3) mg/dL AST 20 (13-39) Units/L ALT 17 (7-52) Units/L Alkaline Phosphatase 57 (34-104) Units/L Albumin 3.2 L (3.5-5.7) g/dL Calcium panel 05/14/19 Range/Units 03:06 Calcium 8.4 L (8.6-10.3) mg/dL Albumin 3.2 L (3.5-5.7) g/dL Pituitary panel 05/14/19 Range/Units 03:06 Sodium 138 (136-145) mEq/L Potassium 4.1 (3.5-5.1) mEq/L Chloride 108 H (98-107) mEq/L Carbon Dioxide 20 L (23-29) mEq/L BUN 17 (8-23) mg/dL Creatinine 1.15 (0.60-1.20) mg/dL Glucose 207 H (70-105) mg/dL Calcium 8.4 L (8.6-10.3) mg/dL Adrenal panel 05/14/19 Range/Units 03:06 Sodium 138 (136-145) mEq/L Potassium 4.1 (3.5-5.1) mEq/L Chloride 108 H (98-107) mEq/L Carbon Dioxide 20 L (23-29) mEq/L BUN 17 (8-23) mg/dL Creatinine 1.15 (0.60-1.20) mg/dL Glucose 207 H (70-105) mg/dL Calcium 8.4 L (8.6-10.3) mg/dL Total Bilirubin 0.4 (0.3-1.0) mg/dL AST 20 (13-39) Units/L ALT 17 (7-52) Units/L Alkaline Phosphatase 57 (34-104) Units/L Albumin 3.2 L (3.5-5.7) g/dL Consult Discharge Plan - Plan Referrals: Muriel Bardales MD [Primary Care Provider] -
[2019-05-14] MEDS ORDERED: Metoprolol XL (24 HR) Succ 25 MG TAB.ER.24H PO SCH (09:00)
--- NOTE | 2019-05-14 09:34 | Internal Med Progress Note ---
Hospitalist Progress Note - Encounter Date of Encounter: 05/14/19 Time of Encounter: 08:31 - Subjective Interval History: Patient was seen and examined at bedside. Denies fever, chills Denies nausea, vomiting or diarrhea. Has had no shortness of breath chest pain or palpitations. Is feeling somewhat better than yesterday. All questions answered. Tolerating by mouth diet. Pain is controlled with pain medications. - Exam Vitals: Temp Pulse Resp BP Pulse Ox 101.5 F H 80 21 110/59 94 05/14/19 08:00 05/14/19 09:00 05/14/19 09:00 05/14/19 09:00 05/14/19 09:00 Exam: General: Patient is alert, oriented, no acute distress, obese, speaks in full sentences Head: atraumatic, normocephalic, Eye: normal appearance, PERRL, no scleral icterus, no conjunctival injection ENT: mucous membranes moist, normal external ear exam Neck: normal inspection, trachea midline, full ROM, Chest: normal inspection, symmetric chest rise previous well-healed CABG scar Respiratory: Decreased breath sounds secondary to body habitus, could not appreciate any crackles or wheezing. Cardiovascular: Regular rate and rhythm. s1 and s2 No clicks, rubs, gallops, or murmors. Abdomen: Bowel sounds present normoactive x-4 quadrants. Abdomen is soft, nondistended. no Epigastric tenderness. No guarding or rebound. No organomegaly noted, obese, CVA tenderness bilaterally musculoskeletal: Spontaneously moving all extremities. no edema, no calf tenderness Skin: warm, dry, intact. Neuro: Alert and oriented x3 no focal deficit Psych: Patient's affect is normal - Assessment and Plan (1) Pyelonephritis Current Visit: Yes Status: Acute Assessment and Plan: s/p Cystoscopy. Right retrograde pyelogram. Right double-J stent placement Continue with IV Zosyn Follow blood cultures and urine cultures Pain control Continue to monitor renal functions Urology on board (2) Urolithiasis Current Visit: Yes Status: Suspected Assessment and Plan: right sided hydronephrosis with bilateral urolithiasis s/p Cystoscopy. Right retrograde pyelogram. Right double-J stent placement Urology on board (3) Septic shock Current Visit: Yes Status: Acute Assessment and Plan: Secondary to above Follow urine cultures and blood cultures s/p Cystoscopy. Right retrograde pyelogram. Right double-J stent placement on 05/13 Required vasopressors post procedure and right internal jugular central venous catheter was inserted by the surgical team and she was started on phenylephrine for hypotension continue to taper off phenylephrine Continue with IV fluids and watch for overload cortisol added to AM labs tylenol PRN for fever (4) Anemia Current Visit: Yes Status: Acute Assessment and Plan: Baseline hemoglobin of 11.2 and 2016 Hemoglobin was 10.2 upon arrival to the emergency department has trended down to 8.9 most likely secondary to aggressive IV fluids from septic shock We will continue to monitor hemoglobin and hematocrit closely Iron panel, folate and B12 along with reticulocyte count, LDH sent Type and cross Transfuse as per protocol (5) CAD (coronary artery disease) Current Visit: Yes Status: Chronic Assessment and Plan: Continue with aspirin, Plavix, Lipitor Beta blockers are on hold secondary to septic shock as she is requiring vasopressors We will consider resuming once BP is more stable. [facility] in 2011: Moderate single vessel coronary artery disease. Patent saphenous vein graft to the posterior descending artery. Patent pre-existing stent and 50% in-stent restenosis of the pre-existing stent in the proximal RCA. 70% in-stent restenosis of the pre-existing stent and 60 to 70% stenosis in the mid to distal RCA. Normal left ventricular size and contractility. The overall left ventricular systolic function was normal. The left ventricular ejection fraction was 60%. Mildly elevated left ventricular end diastolic pre ssure. stress test on 03/11/19- stress ECG is negative for ischemia. TTE in 2017- Impressions: LVEF 60%. Not all LV segments were well visualized, but overall function grossly appears normal. Normal LV chamber size and thickness. Mild left ventricular diastolic dysfunction. Atypical septal motion consistent with post-operative status. Grossly normal right ventricular structure and function. No evidence of pulmonary hypertension identified. RVSP not well obtained due to poor TR jet and could be underestimated. No obvious significant valvular dysfunction. (6) DM2 (diabetes mellitus, type 2) Current Visit: Yes Status: Chronic Assessment and Plan: Hold oral home meds and continue with SSI. Monitor glucose and adjust insulin dosing as necessary. (7) Hypothyroidism (acquired) Current Visit: Yes Status: Acute Assessment and Plan: continue with home synthroid dose (8) Morbidly obese Current Visit: Yes Status: Acute Assessment and Plan: was counseled on diet and nutrition (9) DVT prophylaxis Current Visit: Yes Status: Acute Assessment and Plan: Heparin subcutaneous - Time Spent with Patient Total time spent is greater than 50% in coordination of care (as documented) at patient's floor/unit and/or counseling patient: Internal Medicine: Result - Labs CBC & Chem 7: 05/14/19 03:06 05/14/19 03:06 Labs: Short CBC 05/14/19 Range/Units 03:06 WBC 12.2 H (4.3-11.1) K/mcL Hgb 8.9 L (11.5-15.4) g/dL Hct 27.6 L (35.3-44.9) % Plt Count 160 (140-400) K/mcL Neutrophils # 9.9 H (1.6-8.9) K/mcL BMP 05/14/19 03:06 Sodium 138 Potassium 4.1 Chloride 108 H Carbon Dioxide 20 L BUN 17 Creatinine 1.15 Glucose 207 H Calcium 8.4 L Liver Function 05/14/19 Range/Units 03:06 Total Bilirubin 0.4 (0.3-1.0) mg/dL AST 20 (13-39) Units/L ALT 17 (7-52) Units/L Alkaline Phosphatase 57 (34-104) Units/L Albumin 3.2 L (3.5-5.7) g/dL Urine 05/13/19 Range/Units 18:25 Urine Color Light Yellow (Yellow) Urine Clarity Clear (Clear) Urine pH 6.0 (5.0-8.0) pH Units Ur Specific [place] 1.005 L (1.010-1.025) Urine Protein 30 H (Neg-Trace) mg/dL Urine Glucose (UA) 500 H (Normal) mg/dL - ABG Interpretation ABG results: PT/INR, D-dimer PT 13.6 Seconds (9.4-12.1) H 05/14/19 03:06 - Impressions Impressions Retrograde Pyelogram 05/13/19 00:00 IMPRESSION: Intraprocedural fluoroscopic spot images as above. See separate procedure report for more information. D/ / Bay Diaz MD / Bay Diaz MD Interpreting Provider: Bay Diaz MD Chest X-Ray 05/13/19 13:28 IMPRESSION: A right IJ catheter has its tip in the superior vena cava. No pneumothorax. New central vascular congestion. No other interval change. D/ / 05/13/2019 13:49:46 Haider Chandler MD / Eliza Ricardo Interpreting Provider: Haider Chandler MD Chest X-Ray 05/14/19 09:07 IMPRESSION: Mildly improved aeration of the left lung D/ / Deep Wick MD / Deep Wick MD Interpreting Provider: Deep Wick MD Consult Discharge Plan - Plan Referrals: Muriel Bardales MD [Primary Care Provider] - (2) Urolithiasis Qualifiers: Urinary calculus location: upper urinary tract Qualified Code(s): N20.9 - Urinary calculus, unspecified (4) Anemia Qualifiers: Anemia type: unspecified type Qualified Code(s): D64.9 - Anemia, unspecified (5) CAD (coronary artery disease) Qualifiers: Coronary Disease-Associated Artery/Lesion type: bypass graft [place] vs. transplanted heart: [place] heart Associated angina: without angina Qualified Code(s): I25.810 - Atherosclerosis of coronary artery bypass graft(s) without angina pectoris (6) DM2 (diabetes mellitus, type 2) Qualifiers: Diabetes mellitus snf insulin use: without snf use Diabetes mellitus complication status: without complication Qualified Code(s): E11.9 - Type 2 diabetes mellitus without complications
[2019-05-14] MEDS ORDERED: 0.9 % Sodium Chloride 1,000 ML IVC SCH (10:00)
[2019-05-14] MEDS: *HR* Heparin 5,000 UNIT/ML VIAL SQ SCH ×2 (15:44→20:45)
[2019-05-14] MEDS: Phenylephrine 10 MG in D5% in Water 250 ML IVC SCH (19:26)
[2019-05-14] MEDS: Latanoprost 2.5 ML BOTTLE BOTH EYES SCH (20:45)
[2019-05-14] MEDS: (Doxepin Hcl 10 MG) PO SCH (20:45)
[2019-05-14] MEDS: Sennosides 8.6 MG TABLET PO SCH (20:45)
[2019-05-14] MEDS: Acetaminophen 325 MG TABLET PO PRN (23:28)
[2019-05-15] MEDS: 0.9 % Sodium Chloride 1,000 ML IVC SCH (01:15)
[2019-05-15 03:48] LABS: VBG Ionized Calcium 1.28 mmol/L (1.15-1.35)
[2019-05-15 04:03] LABS: Hematocrit 24.5 % (35.3-44.9); Hemoglobin 7.6 g/dL (11.5-15.4); Immature Reticulocyte % 25.2 % (11.0-38.0); Mean Corpuscular Hemoglobin 28.5 pg (28.0-33.3); Mean Corpuscular Volume 91.8 fL (83.0-100.0); Mean Platelet Volume 9.2 fL (9.4-12.4); Platelet Count 138 K/mcL (140-400); Red Blood Count 2.67 M/mcL (3.82-4.97); Red Cell Distribution Width 15.5 % (11.5-14.5); Retculocyte # 0.09 M/mcL (0.05-0.10); Reticulocyte % 3.2 % (1.6-2.8); White Blood Count 8.1 K/mcL (4.3-11.1)
[2019-05-15 04:23] LABS: Calcium 8.4 mg/dL (8.6-10.3); Potassium 3.8 mEq/L (3.5-5.1)
[2019-05-15 05:20] LABS: Folate 9.1 ng/mL (3.0-16.0)
[2019-05-15] MEDS: *HR* Heparin 5,000 UNIT/ML VIAL SQ SCH ×3 (05:45→21:20)
[2019-05-15] MEDS: Gabapentin 300 MG CAPSULE PO SCH ×2 (07:57→21:19)
[2019-05-15] MEDS: Aspirin Enteric Coated 81 MG Tablet PO SCH (07:57)
[2019-05-15] MEDS: Piperacillin/Tazobactam 3.375 GM in 0.9 % Sodium Chloride Mini Bag 100 ML IVPB SCH ×2 (07:57→17:49)
[2019-05-15] MEDS: Sennosides 8.6 MG TABLET PO SCH (08:00)
[2019-05-15] MEDS: Latanoprost 2.5 ML BOTTLE BOTH EYES SCH ×2 (08:00→21:28)
[2019-05-15] MEDS: Insulin LISPRO 300 UNITS/3 ML VIAL SQ SCH ×4 (08:04→21:20)
[2019-05-15] MEDS ORDERED: Bisacodyl 10 MG RECTAL SUPPOSITORY RC PRN (08:34)
--- NOTE | 2019-05-15 08:34 | Urology Progress Note ---
Date of Encounter: 05/15/19 Time of Encounter: 08:32 - Assessment and Plan (1) Renal colic on right side Current Visit: Yes Status: Acute Assessment and plan: I prefer to leave the Kemp catheter in place until she is afebrile for 24 hour period of time. Her flank pain has now resolved since the stent was placed. On sure of the etiology of her abdominal pain with coughing. Start with suppository to aid with passage of flatus and bowel movement. Up out of bed to chair as much as possible today. If her abdominal pain worsens may consider contrast CT scan but prefer to hold off for now Progress Note Narrative: Postop day #2 status post ureteral stent placement for hydronephrosis. She states her flank pain has resolved. She now has abdominal pain especially when she coughs. She reports passing gas but has not had a bowel movement for a few days. Kemp catheter remains in place Objective Initial Vital Signs Temp Pulse Resp BP Pulse Ox 97.6 F 66 14 143/91 97 05/12/19 23:39 05/12/19 23:39 05/12/19 23:39 05/12/19 23:39 05/12/19 23:39 - General physical appearance Present: no distress - Additional Exam Urine has cleared - Labs 05/15/19 03:28 05/15/19 03:28 Diabetes panel 05/14/19 05/15/19 Range/Units 03:06 03:28 Sodium 138 136 (136-145) mEq/L Potassium 4.1 3.8 (3.5-5.1) mEq/L Chloride 108 H 108 H (98-107) mEq/L Carbon Dioxide 20 L 21 L (23-29) mEq/L BUN 17 16 (8-23) mg/dL Creatinine 1.15 1.23 H (0.60-1.20) mg/dL Glucose 207 H 186 H (70-105) mg/dL Calcium 8.4 L 8.4 L (8.6-10.3) mg/dL AST 20 (13-39) Units/L ALT 17 (7-52) Units/L Alkaline Phosphatase 57 (34-104) Units/L Albumin 3.2 L (3.5-5.7) g/dL Calcium panel 05/14/19 05/15/19 05/15/19 Range/Units 03:06 03:28 03:28 Calcium 8.4 L 8.4 L (8.6-10.3) mg/dL Albumin 3.2 L (3.5-5.7) g/dL 25-OH Vitamin D Total 4 L (30-80) ng/mL Pituitary panel 05/14/19 05/15/19 Range/Units 03:06 03:28 Sodium 138 136 (136-145) mEq/L Potassium 4.1 3.8 (3.5-5.1) mEq/L Chloride 108 H 108 H (98-107) mEq/L Carbon Dioxide 20 L 21 L (23-29) mEq/L BUN 17 16 (8-23) mg/dL Creatinine 1.15 1.23 H (0.60-1.20) mg/dL Glucose 207 H 186 H (70-105) mg/dL Calcium 8.4 L 8.4 L (8.6-10.3) mg/dL Adrenal panel 05/14/19 05/15/19 Range/Units 03:06 03:28 Sodium 138 136 (136-145) mEq/L Potassium 4.1 3.8 (3.5-5.1) mEq/L Chloride 108 H 108 H (98-107) mEq/L Carbon Dioxide 20 L 21 L (23-29) mEq/L BUN 17 16 (8-23) mg/dL Creatinine 1.15 1.23 H (0.60-1.20) mg/dL Glucose 207 H 186 H (70-105) mg/dL Calcium 8.4 L 8.4 L (8.6-10.3) mg/dL Total Bilirubin 0.4 (0.3-1.0) mg/dL AST 20 (13-39) Units/L ALT 17 (7-52) Units/L Alkaline Phosphatase 57 (34-104) Units/L Albumin 3.2 L (3.5-5.7) g/dL Consult Discharge Plan - Plan Referrals: Muriel Bardales MD [Primary Care Provider] -
[2019-05-15 08:42] LABS: Estimated Average Glucose 183 mg/dl
[2019-05-15] MEDS ORDERED: Cyanocobalamin (B-12) 1,000 MCG/ML VIAL SQ ONE (11:57)
[2019-05-15] MEDS ORDERED: Iron Sucrose Complex 200 MG in 0.9 % Sodium Chloride 100 ML IVPB ONE (11:58)
--- NOTE | 2019-05-15 11:59 | Internal Med Progress Note ---
Hospitalist Progress Note - Encounter Date of Encounter: 05/15/19 Time of Encounter: 08:00 - Subjective Interval History: Patient was seen and examined at bedside. All questions answered. Has no complaints. Denies melena or hematochezia or hematemesis. Feeling much better than yesterday. Continues to complain of suprapubic abdominal pain, nonradiati ng has been passing gas denies flank pain. Has had no fever, chills, shortness of breath or chest pain or palpitations. Discussed with the nursing staff that she may be transferred to telemetry floor as she is off pressors. - Exam Vitals: Temp Pulse Resp BP Pulse Ox 98.9 F 81 20 132/58 94 05/15/19 04:00 05/15/19 09:00 05/15/19 09:00 05/15/19 09:00 05/15/19 09:00 Exam: General: Patient is alert, oriented, no acute distress, obese, speaks in full sentences Head: atraumatic, normocephalic, Eye: normal appearance, PERRL, no scleral icterus, no conjunctival injection ENT: mucous membranes moist, normal external ear exam Neck: normal inspection, trachea midline, full ROM, Chest: normal inspection, symmetric chest rise previous well-healed CABG scar Respiratory: Decreased breath sounds secondary to body habitus, could not appreciate any crackles or wheezing. Cardiovascular: Regular rate and rhythm. s1 and s2 No clicks, rubs, gallops, or murmors. Abdomen: Bowel sounds present normoactive x-4 quadrants. Abdomen is soft, nondistended. no Epigastric tenderness. No guarding or rebound. No organomegaly noted, obese, CVA tenderness bilaterally musculoskeletal: Spontaneously moving all extremities. no edema, no calf tenderness Skin: warm, dry, intact. Neuro: Alert and oriented x3 no focal deficit Psych: Patient's affect is normal - Assessment and Plan (1) Pyelonephritis Current Visit: Yes Status: Acute Assessment and Plan: s/p Cystoscopy. Right retrograde pyelogram. Right double-J stent placement Continue with IV Zosyn ucx with ecoli- pnsensitive blood cx NGTD Pain control Continue to monitor renal functions Urology on board does complain of abdominal pain however is passing gas and her abdomen is sft, renal functions trended up- will consider Ct A/p if her abdominal pain continues (2) Urolithiasis Current Visit: Yes Status: Suspected Assessment and Plan: right sided hydronephrosis with bilateral urolithiasis s/p Cystoscopy. Right retrograde pyelogram. Right double-J stent placement Urology on board (3) Septic shock Current Visit: Yes Status: Acute Assessment and Plan: Secondary to above urine cx with ecoli bcx NGTD s/p Cystoscopy. Right retrograde pyelogram. Right double-J stent placement on 05/13 Required vasopressors post procedure and right internal jugular central venous catheter was inserted by the surgical team and she was started on phenylephrine for hypotension was tapered off of phenylephrine cortisol wnl tylenol PRN for fever transfer out of ICU to telemetry (4) Anemia Current Visit: Yes Status: Acute Assessment and Plan: multifactorial from iron deficiency, b12 deficiency and minimal blood loss while in procedure Baseline hemoglobin of 11.2 and 2015 Hemoglobin was 10.2 upon arrival to the emergency department has trended down to 7.6 most likely secondary to aggressive IV fluids from septic shock We will continue to monitor hemoglobin and hematocrit closely Q6H Iron panel noted , folate WNL and B12 162 along with reticulocyte count, LDH 113 Type and crossed Transfuse as per protocol started on b12 and iron replacements FOBT pending continue PPI currently no signs of bleeding - will consider discontinuing ASA and plavix if H/h continues to trend down (5) ARF (acute renal failure) Current Visit: Yes Status: Acute Assessment and Plan: Likely secondary to hypoperfusion from hypotension and septic shock along with hydronephrosis Baseline creatinine 1.15 has trended up to 1.23 Has baseline sick 83, GFR in January 2019 was 46 Urology is on board Strict intake and output Avoid nephrotoxic medications We will continue to monitor creatinine closely (6) CAD (coronary artery disease) Current Visit: Yes Status: Chronic Assessment and Plan: Continue with aspirin, Plavix, Lipitor will consider stopping DAPT if H/H continue to trend down Beta blockers are on hold secondary to septic shock as she is requiring vasopressors restart BB if BP continue to remain stable [facility] in 2011: Moderate single vessel coronary artery disease. Patent saphenous vein graft to the posterior descending artery. Patent pre-existing stent and 50% in-stent restenosis of the pre-existing stent in the proximal RCA. 70% in-stent restenosis of the pre-existing stent and 60 to 70% stenosis in the mid to distal RCA. Normal left ventricular size and contractility. The overall left ventricular systolic function was normal. The left ventricular ejection fraction was 60%. Mildly elevated left ventricular end diastolic pressure. stress test on 03/11/19- stress ECG is negative for ischemia. TTE in 2017- Impressions: LVEF 60%. Not all LV segments were well visualized, but overall function grossly appears normal. Normal LV chamber size and thickness. Mild left ventricular diastolic dysfunction. Atypical septal motion consistent with post-operative status. Grossly normal right ventricular structure and function. No evidence of pulmonary hypertension identified. RVSP not well obtained due to poor TR jet and could be underestimated. No obvious significant valvular dysfunction. (7) DM2 (diabetes mellitus, type 2) Current Visit: Yes Status: Chronic Assessment and Plan: Hold oral home meds and continue with SSI. Monitor glucose and adjust insulin dosing as necessary. (8) Hypothyroidism (acquired) Current Visit: Yes Status: Acute Assessment and Plan: continue with home synthroid dose (9) Morbidly obese Current Visit: Yes Status: Acute Assessment and Plan: was counseled on diet and nutrition (10) Vitamin D deficiency Current Visit: Yes Status: Acute Assessment and Plan: level is 4 started on PO supplements (11) Iron deficiency anemia Current Visit: Yes Status: Acute Assessment and Plan: as above (12) B12 deficiency Current Visit: Yes Status: Acute Assessment and Plan: as above (13) DVT prophylaxis Current Visit: Yes Status: Acute Assessment and Plan: Heparin subcutaneous - Time Spent with Patient Total time spent is greater than 50% in coordination of care (as documented) at patient's floor/unit and/or counseling patient: Internal Medicine: Result - Labs CBC & Chem 7: 05/15/19 03:28 05/15/19 03:28 Labs: Short CBC 05/15/19 Range/Units 03:28 WBC 8.1 (4.3-11.1) K/mcL Hgb 7.6 L (11.5-15.4) g/dL Hct 24.5 L (35.3-44.9) % Plt Count 138 L (140-400) K/mcL [facility] 05/15/19 03:28 Sodium 136 Potassium 3.8 Chloride 108 H Carbon Dioxide 21 L BUN 16 Creatinine 1.23 H Glucose 186 H Calcium 8.4 L - ABG Interpretation ABG results: PT/INR, D-dimer PT 13.6 Seconds (9.4-12.1) H 05/14/19 03:06 Consult Discharge Plan - Plan Referrals: Muriel Bardales MD [Primary Care Provider] - _ (2) Urolithiasis Qualifiers: Urinary calculus location: upper urinary tract Qualified Code(s): N20.9 - Urinary calculus, unspecified (4) Anemia Qualifiers: Anemia type: unspecified type Qualified Code(s): D64.9 - Anemia, unspecified (5) ARF (acute renal failure) Qualifiers: Acute renal failure type: unspecified Qualified Code(s): N17.9 - Acute kidney failure, unspecified (6) CAD (coronary artery disease) Qualifiers: Coronary Disease-Associated Artery/Lesion type: bypass graft [place] vs. transplanted heart: [place] heart Associated angina: without angina Qualified Code(s): I25.810 - Atherosclerosis of coronary artery bypass graft(s) without angina pectoris (7) DM2 (diabetes mellitus, type 2) Qualifiers: Diabetes mellitus longterm insulin use: without medical terminologist use Diabetes mellitus complication status: without complication Qualified Code(s): E11.9 - Type 2 diabetes mellitus without complications (11) Iron deficiency anemia Qualifiers: Iron deficiency anemia type: unspecified iron deficiency Qualified Code(s): D50.9 - Iron deficiency anemia, unspecified
[2019-05-15 15:48] LABS: Hematocrit 25.7 % (35.3-44.9); Hemoglobin 8.1 g/dL (11.5-15.4)
[2019-05-15] MEDS: *HR* HYDROcodone/Acet 5/325 mg TABLET PO PRN (17:54)
[2019-05-15] MEDS: Phenylephrine 10 MG in D5% in Water 250 ML IVC SCH (21:13)
[2019-05-15] MEDS: Primidone 50 MG TABLET PO SCH (21:18)
[2019-05-15] MEDS: (Doxepin Hcl 10 MG) PO SCH (21:20)
[2019-05-15 21:53] LABS: Hematocrit 26.4 % (35.3-44.9); Hemoglobin 8.3 g/dL (11.5-15.4)
[2019-05-16] MEDS ORDERED: Melatonin 3 MG TABLET PO PRN (00:26)
[2019-05-16] MEDS: Piperacillin/Tazobactam 3.375 GM in 0.9 % Sodium Chloride Mini Bag 100 ML IVPB SCH ×2 (00:38→08:15)
[2019-05-16 00:48] LABS: Hematocrit 26.8 % (35.3-44.9); Hemoglobin 8.4 g/dL (11.5-15.4)
[2019-05-16] MEDS: *HR* Heparin 5,000 UNIT/ML VIAL SQ SCH ×3 (05:18→20:40)
[2019-05-16 06:33] LABS: Hematocrit 26.7 % (35.3-44.9); Hemoglobin 8.4 g/dL (11.5-15.4); Mean Corpuscular HGB Conc 31.5 g/dL (31.6-35.5); Mean Corpuscular Hemoglobin 28.6 pg (28.0-33.3); Mean Corpuscular Volume 90.8 fL (83.0-100.0); Mean Platelet Volume 8.8 fL (9.4-12.4); Platelet Count 148 K/mcL (140-400); Red Blood Count 2.94 M/mcL (3.82-4.97); Red Cell Distribution Width 15.3 % (11.5-14.5); White Blood Count 6.6 K/mcL (4.3-11.1)
[2019-05-16 06:52] LABS: Calcium 9.2 mg/dL (8.6-10.3)
[2019-05-16] MEDS: Gabapentin 300 MG CAPSULE PO SCH ×2 (08:14→19:43)
[2019-05-16] MEDS: Cyanocobalamin (B-12) 1,000 MCG TABLET PO SCH (08:14)
[2019-05-16] MEDS: Aspirin Enteric Coated 81 MG Tablet PO SCH (08:15)
[2019-05-16] MEDS: Insulin LISPRO 300 UNITS/3 ML VIAL SQ SCH ×3 (08:15→16:46)
[2019-05-16] MEDS: Sennosides 8.6 MG TABLET PO SCH (08:16)
[2019-05-16] MEDS: Latanoprost 2.5 ML BOTTLE BOTH EYES SCH (08:16)
--- NOTE | 2019-05-16 08:55 | Urology Progress Note ---
Date of Encounter: 05/16/19 Time of Encounter: 08:20 - Assessment and Plan (1) Hydronephrosis, right Current Visit: Yes Status: Acute Assessment and plan: Patient is a 73-year-old female who presents with history of right hydrone phrosis, fever and hypotension. Patient is 3 days status post cystoscopy, right retrograde pyelogram and right ureteral stent placement. We will plan to see patient within 2 weeks of discharge and remove her stent in the office. (2) Right flank pain Current Visit: Yes Status: Acute (3) Urinary tract infection Current Visit: Yes Status: Acute Assessment and plan: Patient is a 73-year-old female who presents with a pansensitive Escherichia coli urinary tract infection. Vital signs are stable and afebrile. White blood cell count is reassuring. Renal function is approaching baseline. Patient will require an additional 14 days of oral culture sensitive antibiotics. Qualifiers: Urinary tract infection type: site unspecified Hematuria presence: without hematuria Qualified Code(s): N39.0 - Urinary tract infection, site not specified Progress Note Narrative: POD #3. Patient seen and examined sitting upright in bed in no apparent distress. Nursing staff at bedside. Patient reports she is feeling much better, and she denies any fever, chills or flank pain. Patient reports tolerating normal diet without nausea or vomiting. Kemp catheter is indwelling and draining transparent, clear yellow urine into bedside bag. Objective Initial Vital Signs Temp Pulse Resp BP Pulse Ox 97.6 F 66 14 143/91 97 05/12/19 23:39 05/12/19 23:39 05/12/19 23:39 05/12/19 23:39 05/12/19 23:39 - General physical appearance Present: no distress, no pain - Respiratory Present: normal expansion, normal respiratory effort - Abdomen Present: soft, non tender. Absent: distended - Genitourinary Urine Appearance: Present: Clear - Integumentary Present: no rash, no abnormal pigmentation - Musculoskeletal Present: normal posture - Psychiatric Present: oriented to time, oriented to person, oriented to place, speech is normal, memory intact - Labs 05/16/19 06:22 05/16/19 06:22 Diabetes panel 05/16/19 Range/Units 06:22 Sodium 137 (136-145) mEq/L Potassium 4.0 (3.5-5.1) mEq/L Chloride 105 (98-107) mEq/L Carbon Dioxide 24 (23-29) mEq/L BUN 13 (8-23) mg/dL Creatinine 1.21 H (0.60-1.20) mg/dL Glucose 156 H (70-105) mg/dL Calcium 9.2 (8.6-10.3) mg/dL Calcium panel 05/16/19 Range/Units 06:22 Calcium 9.2 (8.6-10.3) mg/dL Pituitary panel 05/16/19 Range/Units 06:22 Sodium 137 (136-145) mEq/L Potassium 4.0 (3.5-5.1) mEq/L Chloride 105 (98-107) mEq/L Carbon Dioxide 24 (23-29) mEq/L BUN 13 (8-23) mg/dL Creatinine 1.21 H (0.60-1.20) mg/dL Glucose 156 H (70-105) mg/dL Calcium 9.2 (8.6-10.3) mg/dL Adrenal panel 05/16/19 Range/Units 06:22 Sodium 137 (136-145) mEq/L Potassium 4.0 (3.5-5.1) mEq/L Chloride 105 (98-107) mEq/L Carbon Dioxide 24 (23-29) mEq/L BUN 13 (8-23) mg/dL Creatinine 1.21 H (0.60-1.20) mg/dL Glucose 156 H (70-105) mg/dL Calcium 9.2 (8.6-10.3) mg/dL Consult Discharge Plan - Plan Referrals: Muriel Bardales MD [Primary Care Provider] -
--- NOTE | 2019-05-16 11:39 | Internal Med Progress Note ---
Hospitalist Progress Note - Encounter Date of Encounter: 05/16/19 Time of Encounter: 08:00 - Subjective Interval History: Patient was seen and examined at bedside. Reports that she did have a bowel movement however she continues to have periumbilical abdominal pain, denies any flank pain. Discussed that we will remove the Kemp catheter today for for a trial and she will likely need 14 days of oral antibiotics and she understands. Worked with physical therapy and was out of bed to chair and she was encouraged to continue to ambulate as much as possible. She denies fever, chills, chest pain or palpitations. - Exam Vitals: Temp Pulse Resp BP Pulse Ox 97.4 F L 57 16 112/69 95 05/16/19 11:08 05/16/19 11:08 05/16/19 11:08 05/16/19 11:08 05/16/19 11:08 Exam: General: Patient is alert, oriented, no acute distress, obese, speaks in full sentences Head: atraumatic, normocephalic, Eye: normal appearance, PERRL, no scleral icterus, no conjunctival injection ENT: mucous membranes moist, normal external ear exam Neck: normal inspection, trachea midline, full ROM, Chest: normal inspection, symmetric chest rise previous well-healed CABG scar Respiratory: Decreased breath sounds secondary to body habitus, could not appreciate any crackles or wheezing. Cardiovascular: Regular rate and rhythm. s1 and s2 No clicks, rubs, gallops, or murmors. Abdomen: Bowel sounds present normoactive x-4 quadrants. Abdomen is soft, no Epigastric tenderness. No guarding or rebound. mildly tender on palpation in tete periumbilical area. No organomegaly noted, obese, CVA tenderness bilaterally musculoskeletal: Spontaneously moving all extremities. no edema, no calf tenderness Skin: warm, dry, intact. Neuro: Alert and oriented x3 no focal deficit Psych: Patient's affect is normal - Assessment and Plan (1) Pyelonephritis Current Visit: Yes Status: Acute Assessment and Plan: s/p Cystoscopy. Right retrograde pyelogram. Right double-J stent placement Continue with IV Zosyn- will transition her to oral Abx upon discharge for a 14 day course as per urology ucx with ecoli- pansensitive blood cx NGTD Pain control Continue to monitor renal functions Urology on board continue to complain of abdominal pain- will get CT A/P void trail 05/16 (2) Urolithiasis Current Visit: Yes Status: Suspected Assessment and Plan: right sided hydronephrosis with bilateral urolithiasis s/p Cystoscopy. Right retrograde pyelogram. Right double-J stent placement Urology on board (3) Septic shock Current Visit: Yes Status: Acute Assessment and Plan: Secondary to above urine cx with ecoli bcx NGTD s/p Cystoscopy. Right retrograde pyelogram. Right double-J stent placement on 05/13 Required vasopressors post procedure and right internal jugular central venous catheter was inserted by the surgical team and she was started on phenylephrine for hypotension was tapered off of phenylephrine cortisol wnl tylenol PRN for fever (4) Anemia Current Visit: Yes Status: Acute Assessment and Plan: multifactorial from iron deficiency, b12 deficiency and minimal blood loss while in procedure Baseline hemoglobin of 11.2 and 2016 Hemoglobin was 10.2 upon arrival to the emergency department has trended down to 7.6 most likely secondary to aggressive IV fluids from septic shock H/H has improved to 8.4. We will continue to monitor hemoglobin and hematocrit Iron panel noted , folate WNL and B12 162 along with reticulocyte count 3.2 , L DH 113 Type and crossed Transfuse as per protocol started on b12 and iron replacements FOBT pending - nrsing staff aware continue PPI currently no signs of bleeding - will consider discontinuing ASA and plavix if H/h trends down (5) ARF (acute renal failure) Current Visit: Yes Status: Acute Assessment and Plan: Likely secondary to hypoperfusion from hypotension and septic shock along with hydronephrosis Baseline creatinine 1.15 has trended up to 1.23 and is trending down Has baseline sick 83, GFR in January 2019 was 46 Urology is on board Strict intake and output Avoid nephrotoxic medications We will continue to monitor creatinine closely (6) CAD (coronary artery disease) Current Visit: Yes Status: Chronic Assessment and Plan: Continue with aspirin, Plavix, Lipitor will consider stopping DAPT if H/H continue to trend down Beta blockers were on hold secondary to septic shock as she is requiring vasopressors- have been resumed [facility] in 2010: Moderate single vessel coronary artery disease. Patent saphenous vein graft to the posterior descending artery. Patent pre-existing stent and 50% in-stent restenosis of the pre-existing stent in the proximal RCA. 70% in-stent restenosis of the pre-existing stent and 60 to 70% stenosis in the mid to distal RCA. Normal left ventricular size and contractility. The overall left ventricular systolic function was normal. The left ventricular ejection fraction was 60%. Mildly elevated left ventricular end diastolic pressure. stress test on 03/11/19- stress ECG is negative for ischemia. TTE in 2017- Impressions: LVEF 60%. Not all LV segments were well visualized, but overall function grossly appears normal. Normal LV chamber size and thickness. Mild left ventricular diastolic dysfunction. Atypical septal motion consistent with post-operative status. Grossly normal right ventricular structure and function. No evidence of pulmonary hypertension identified. RVSP not well obtained due to poor TR jet and could be underestimated. No obvious significant valvular dysfunction. (7) DM2 (diabetes mellitus, type 2) Current Visit: Yes Status: Chronic Assessment and Plan: Hold oral home meds and continue with SSI. Monitor glucose and adjust insulin dosing as necessary. (8) Hypothyroidism (acquired) Current Visit: Yes Status: Acute Assessment and Plan: continue with home synthroid dose (9) Morbidly obese Current Visit: Yes Status: Acute Assessment and Plan: was counseled on diet and nutrition (10) Vitamin D deficiency Current Visit: Yes Status: Acute Assessment and Plan: level is 4 started on PO supplements (11) Iron deficiency anemia Current Visit: Yes Status: Acute Assessment and Plan: as above (12) B12 deficiency Current Visit: Yes Status: Acute Assessment and Plan: as above (13) DVT prophylaxis Current Visit: Yes Status: Acute Assessment and Plan: Heparin subcutaneous - Time Spent with Patient Total time spent is greater than 50% in coordination of care (as documented) at patient's floor/unit and/or counseling patient: Internal Medicine: Result - Labs CBC & Chem 7: 05/16/19 06:22 05/16/19 06:22 Labs: Short CBC 05/15/19 05/15/19 05/16/19 Range/Units 15:38 21:01 00:34 WBC (4.3-11.1) K/mcL Hgb 8.1 L 8.3 L 8.4 L (11.5-15.4) g/dL Hct 25.7 L 26.4 L 26.8 L (35.3-44.9) % Plt Count (140-400) K/mcL 05/16/19 Range/Units 06:22 WBC 6.6 (4.3-11.1) K/mcL Hgb 8.4 L (11.5-15.4) g/dL Hct 26.7 L (35.3-44.9) % Plt Count 148 (140-400) K/mcL [facility] 05/16/19 06:22 Sodium 137 Potassium 4.0 Chloride 105 Carbon Dioxide 24 BUN 13 Creatinine 1.21 H Glucose 156 H Calcium 9.2 - ABG Interpretation ABG results: PT/INR, D-dimer PT 13.6 Seconds (9.4-12.1) H 05/14/19 03:06 Consult Discharge Plan - Plan Referrals: Muriel Bardales MD [Primary Care Provider] - (2) Urolithiasis Qualifiers: Urinary calculus location: upper urinary tract Qualified Code(s): N20.9 - Urinary calculus, unspecified (4) Anemia Qualifiers: Anemia type: unspecified type Qualified Code(s): D64.9 - Anemia, unspecified (5) ARF (acute renal failure) Qualifiers: Acute renal failure type: unspecified Qualified Code(s): N17.9 - Acute kidney failure, unspecified (6) CAD (coronary artery disease) Qualifiers: Coronary Disease-Associated Artery/Lesion type: bypass graft [place] vs. transplanted heart: [place] heart Associated angina: without angina Qualified Code(s): I25.810 - Atherosclerosis of coronary artery bypass graft(s) without angina pectoris (7) DM2 (diabetes mellitus, type 2) Qualifiers: Diabetes mellitus petroleum terminal plant operator insulin use: without petroleum terminal plant operator use Diabetes mellitus complication status: without complication Qualified Code(s): E11.9 - Type 2 diabetes mellitus without complications (11) Iron deficiency anemia Qualifiers: Iron deficiency anemia type: unspecified iron deficiency Qualified Code(s): D50.9 - Iron deficiency anemia, unspecified
[2019-05-16] MEDS: Cefdinir 300 MG CAPSULE PO SCH ×2 (14:08→19:42)
[2019-05-16] MEDS: Primidone 50 MG TABLET PO SCH (19:43)
[2019-05-17] MEDS: *HR* Heparin 5,000 UNIT/ML VIAL SQ SCH (05:59)
[2019-05-17] MEDS: Insulin LISPRO 300 UNITS/3 ML VIAL SQ SCH ×3 (06:03→12:50)
[2019-05-17] MEDS: Latanoprost 2.5 ML BOTTLE BOTH EYES SCH ×2 (06:03→08:18)
[2019-05-17 07:03] LABS: Hematocrit 25.7 % (35.3-44.9); Hemoglobin 8.1 g/dL (11.5-15.4); Mean Corpuscular HGB Conc 31.5 g/dL (31.6-35.5); Mean Corpuscular Volume 88.9 fL (83.0-100.0); Mean Platelet Volume 9.1 fL (9.4-12.4); Platelet Count 175 K/mcL (140-400); Red Blood Count 2.89 M/mcL (3.82-4.97); Red Cell Distribution Width 15.2 % (11.5-14.5); White Blood Count 5.5 K/mcL (4.3-11.1)
[2019-05-17 07:22] LABS: BUN/Creatinine Ratio 13 (6-26); Blood Urea Nitrogen 14 mg/dL (8-23); Calcium 9.3 mg/dL (8.6-10.3); Carbon Dioxide 26 mEq/L (23-29); Chloride 103 mEq/L (98-107); Glucose 202 mg/dL (70-105); Osmolality,Calculated 290 (280-300); Potassium 3.7 mEq/L (3.5-5.1); Sodium 137 mEq/L (136-145); eGFR For African Americans > 60 (> 60); eGFR For Non-African Americans 51 (> 60)
[2019-05-17] MEDS: Aspirin Enteric Coated 81 MG Tablet PO SCH (08:17)
[2019-05-17] MEDS: Cyanocobalamin (B-12) 1,000 MCG TABLET PO SCH (08:17)
[2019-05-17] MEDS: Sennosides 8.6 MG TABLET PO SCH (08:17)
[2019-05-17] MEDS: Gabapentin 300 MG CAPSULE PO SCH (08:18)
[2019-05-17] MEDS: Acetaminophen 325 MG TABLET PO PRN (08:18)
[2019-05-17] MEDS: Cefdinir 300 MG CAPSULE PO SCH (08:18)
--- NOTE | 2019-05-17 10:26 | Discharge Summary ---
- NOTES TO OUTPATIENT PROVIDER Notes to Outpatient Provider: follow up with urology for stent removal. follow up with PCP. repeat cbc and Bmp in 5 days. follow vitamin D levels in 4 weeks. follow iron and b12 levels in [address] abdomen and pelvis without contrast was repeated did not show any acute abnormalities in th eabdomen however "Small effusions with bibasilar atelectasis. Questionable filling defects within the pulmonary vessels within the right lower lobe and questionablyleft lower lobe. Cannot exclude arterial origin. Consider follow-up CT pulmonary angiogram as warranted." i discussed the readings with Dr. goddard ( radiologist) who read the non-contrast Ct A/p in regards above reading.i discussed that the patient is not tachycardic not tachypnic and is saturating well and he reported that he is unsure if it was pulmonary veins or artery on Ct scan but they were prominent so he had to comment since the patient is not showing signs and symptoms of PE then its likely not. DVt study is negative for DVT. wells criteria for PE 1.5 (for recent surgery) low probability. discussed above with inside meter tester document control specialist who also agrees that this is low probability for PE nad she can be discharged. i discussed that if she develops SOB and chest pain she is to come to the ED [facility]. Orders not resulted at time of discharge: Pending orders 05/13/19 16:55 Culture,Blood [BC] Stat 05/15/19 12:04 Fecal Hemoccult [Occult Blood,Stool] [BF] Stat Date of Encounter: 05/17/19 Time of Encounter: 10:18 - Discharge Diagnosis (1) Pyelonephritis Priority: Primary Status: Acute (2) Urolithiasis Priority: Secondary Status: Suspected Qualifiers: Urinary calculus location: upper urinary tract Qualified Code(s): N20.9 - Urinary calculus, unspecified (3) Septic shock Priority: Secondary Status: Acute (4) Anemia Priority: Secondary Status: Acute Qualifiers: Anemia type: unspecified type Qualified Code(s): D64.9 - Anemia, unspecified (5) ARF (acute renal failure) Priority: Secondary Status: Acute Qualifiers: Acute renal failure type: unspecified Qualified Code(s): N17.9 - Acute kidney failure, unspecified (6) CAD (coronary artery disease) Priority: Secondary Status: Chronic Qualifiers: Coronary Disease-Associated Artery/Lesion type: bypass graft [place] vs. transplanted heart: [place] heart Associated angina: without angina Qualified Code(s): I25.810 - Atherosclerosis of coronary artery bypass graft(s) without angina pectoris (7) DM2 (diabetes mellitus, type 2) Priority: Secondary Status: Chronic Qualifiers: Diabetes mellitus mcc insulin use: without mcc use Diabetes mellitus complication status: without complication Qualified Code(s): E11.9 - Type 2 diabetes mellitus without complications (8) Hypothyroidism (acquired) Priority: Secondary Status: Acute (9) Morbidly obese Priority: Secondary Status: Acute (10) Vitamin D deficiency Priority: Secondary Status: Acute (11) Iron deficiency anemia Priority: Secondary Status: Acute Qualifiers: Iron deficiency anemia type: unspecified iron deficiency Qualified Code(s): D50.9 - Iron deficiency anemia, unspecified (12) B12 deficiency Priority: Secondary Status: Acute (13) DVT prophylaxis Priority: Secondary Status: Acute Hospital course: "Ms. Ortiz is a 73 year old female who presents with complaints of abrupt onset of flank pain at 10 pm last night. Pain was associated with nausea, vomiting, dysuria, and fevers and chills. Pain was unbearable, and so she came to ER. Pain subsided ever since. Workup in ER revealed patient to have hydronephrosis with findings compatible with pyelonephritis and likely urolithiasis that was passed. CT imaging confirmed the hydronephrosis and inflammatory changes. There was no stone noted on CT, and it was presumed to have passed. She was therefore admitted to hospitalist service. Upon my assessment of the patient, patient still has some subtle flank pain but feels much better than she did prior to presentation in the ER. She reports she has had some subjective fevers and chills just since last night. She has had nausea and vomiting. She had no diarrhea. She has no cough. She has never had any kidney stones before. She does not have recurrent UTI." He should presented with above presentation of ED course and was admitted for pyelonephritis and hydronephrosis on 05/13/19. She was started on IV antibiotics, and urology was consulted and she underwent Cystoscopy, Right retrograde pyelogram and Right double-J stent placement on 05/13. Subsequently she developed hypotension and central line was placed post procedure and she was transferred to the ICU as she required vasopressors for septic shock. Blood pressure improved with IV hydration and vasopressors were tapered off. Leukocytosis resolved. She was transferred back to telemetry unit. she remained afebrile- henson catheter discontinued and she passed void trail. She was cleared for discharge by urology and is to follow-up with him as outpatient for stent removal. BCX NGTD, urine cultures with otero sensitive Ecoli. It was recommended for her to continue with 14 days of antibiotics on 05/16/2019. She had acute on chronic normocytic anemia most likely secondary to hematuria, postop blood loss, and iron and B12 deficiency. iron panel showed iron of 13, B12 level was 162 so she was started on iron and B12 supplementation. She was referred to gastroenterology as outpatient for EGD and colonoscopy. For PCP to follow CBC in 55 days, B12 and iron she be repeated in 2 weeks. She was also found to have severe vitamin D deficiency her vitamin D level was 4 she was started on supplementation for PCP to follow level in 4 weeks and continue repla cement as per their discretion. Hemoglobin A1c was 8 she was counseled on importance of diet and nutrition. She had abdominal pain so CT abdomen and pelvis without contrast was repeated did not show any acute abnormalities in th eabdomen however "Small effusions with bibasilar atelectasis. Questionable filling defects within the pulmonary vessels within the right lower lobe and questionablyleft lower lobe. Cannot exclude arterial origin. Consider follow-up CT pulmonary angiogram as warranted." i discussed the readings with Dr. goddard ( radiologist) who read the non-contrast Ct A/p in regards above reading.i discussed that the patient is not tachycardic not tachypnic and is saturating well and he reported that he is unsure if it was pulmonary veins or artery on Ct scan but they were prominent so he had to comment since the patient is not showing signs and symptoms of PE then its likely not. DVt study is negative for DVT. wells criteria for PE 1.5 (for recent surgery) low probability. discussed above with inside meter tester document control specialist who also agrees that this is low probability for PE nad she can be discharged. i discussed that if she develops SOB and chest pain she is to come to the ED [facility]. PT OT was consulted along with case management and social work. As per case management "Met with patient to discuss PT/OT recommendations for HHC. Patient unsure if she wants HHC at this time and would like to think about it. This RNCM answered all questions related to HH and provided patient with a [facility] list," Discharge discussed with: patient, nurse, social work, case management, rehabilitation consultant - Time Spent with Patient Total time spent providing and/or coordinating discharge services: Time spent: Greater than 30 minutes (40) - Discharge Medications Prescriptions: New Ergocalciferol (VITAMIN D2) [Drisdol (50,000 Unit)] 50,000 unit PO QWEEK #5 capsule Bisacodyl [Dulcolax] 10 mg RC DAILY PRN #10 supp.rect PRN Reason: Constipation/abd pain Ferrous Sulfate 325 mg PO BIDWM #30 tablet Cefdinir [Omnicef] 300 mg PO BID 13 Days #26 capsule Cyanocobalamin (B-12) [Vitamin B12] 1,000 mcg PO DAILY 14 Days tablet Lactobacillus [Culturelle] 1 each PO DAILY #13 cap.sprink Commode - Three In One [THREE IN ONE COMMODE] 1 each .ROUTE PRN PRN #1 each PRN Reason: Abdominal Distention Continued Primidone [Mysoline] 100 mg PO QAM metFORMIN [Glucophage] 1,000 mg PO HS Clopidogrel [Plavix] 75 mg PO DAILY Atorvastatin Calcium [Lipitor] 80 mg PO HS Nitroglycerin [Nitrostat] 0.4 mg SL Q5M PRN PRN Reason: Chest Pain Gabapentin [Neurontin] 600 mg PO TID Duloxetine HCl [Cymbalta] 60 mg PO DAILY Aspirin Enteric Coated [Aspirin EC] 81 mg PO DAILY Diclofenac Sodium 2 - 4 gm TP QID PRN PRN Reason: FEET PAIN Docusate Sodium [Dok] 100 mg PO DAILY PRN PRN Reason: Constipation Doxepin HCl 20 mg PO QAM Doxepin HCl 10 mg PO HS Insulin Degludec [Tresiba Flextouch U-100] 32 unit SQ HS Latanoprost [Xalatan] 1 drop BOTH EYES BID Levothyroxine Sodium [Euthyrox] 75 mcg PO QAM Metoprolol [Lopressor] 12.5 mg PO BID Primidone [Mysoline] 50 mg PO HS raNITIdine HCl [Zantac] 150 mg PO BID Changed Lisinopril [Zestril] 2.5 mg PO DAILY #0 Home Medications: Atorvastatin Calcium [Lipitor] 80 mg PO HS 06/14/16 [History] Clopidogrel [Plavix] 75 mg PO DAILY 06/14/16 [History] Duloxetine HCl [Cymbalta] 60 mg PO DAILY 06/14/16 [History] Gabapentin [Neurontin] 600 mg PO TID 06/14/16 [History] Nitroglycerin [Nitrostat] 0.4 mg SL Q5M PRN 06/14/16 [History] Primidone [Mysoline] 100 mg PO QAM 06/14/16 [History] metFORMIN [Glucophage] 1,000 mg PO HS 06/14/16 [History] Aspirin Enteric Coated [Aspirin EC] 81 mg PO DAILY 05/14/19 [History] Diclofenac Sodium 2 - 4 gm TP QID PRN 05/14/19 [History] Docusate Sodium [Dok] 100 mg PO DAILY PRN 05/14/19 [History] Doxepin HCl 10 mg PO HS 05/14/19 [History] Doxepin HCl 20 mg PO QAM 05/14/19 [History] Insulin Degludec [Tresiba Flextouch U-100] 32 unit SQ HS 05/14/19 [History] Latanoprost [Xalatan] 1 drop BOTH EYES BID 05/14/19 [History] Levothyroxine Sodium [Euthyrox] 75 mcg PO QAM 05/14/19 [History] Metoprolol [Lopressor] 12.5 mg PO BID 05/14/19 [History] Primidone [Mysoline] 50 mg PO HS 05/14/19 [History] raNITIdine HCl [Zantac] 150 mg PO BID 05/14/19 [History] Bisacodyl [Dulcolax] 10 mg RC DAILY PRN #10 supp.rect 05/17/19 [Rx] Cefdinir [Omnicef] 300 mg PO BID 13 Days #26 capsule 05/17/19 [Rx] Commode - Three In One [THREE IN ONE COMMODE] 1 each .ROUTE PRN PRN #1 each 05/17/19 [Rx] Cyanocobalamin (B-12) [Vitamin B12] 1,000 mcg PO DAILY 14 Days tablet 05/17/19 [Rx] Ergocalciferol (VITAMIN D2) [Drisdol (50,000 Unit)] 50,000 unit PO QWEEK #5 capsule 05/17/19 [Rx] Ferrous Sulfate 325 mg PO BIDWM #30 tablet 05/17/19 [Rx] Lactobacillus [Culturelle] 1 each PO DAILY #13 cap.sprink 05/17/19 [Rx] Lisinopril [Zestril] 2.5 mg PO DAILY #0 05/17/19 [Rx] Allergies/Adverse Reactions: Allergy/AdvReac Type Severity Reaction Status Date / Time Iodinated Contrast- Oral and Allergy Anaphylaxis Verified 05/14/19 11:41 IV Dye [Iodinated Contrast Media - IV Dye] levofloxacin [From Levaquin] Allergy Hives Verified 05/14/19 11:41 canagliflozin [From Invokana] AdvReac See Verified 05/14/19 11:41 Comments Date of admission: 05/14/19 13:49 Primary care physician: Muriel Bardales MD Consults: 05/13/19 05:48 Consult to Physician [CONS] Routine Consulting Provider: Curtis Ortiz Reason for Consult: hydronephrosis Call Completed: Yes 05/16/19 07:29 Consult to Physical Therapy [CONS] Routine Comment: Evaluate, develop and implement POC Reason for Consult: dispostion Does patient have active BEDREST order?: No Is patient medically & hemodynamically stable?: Yes Patient assessed for mobility or mobilized this visit?: Yes OT [Consult to Occupational Therapy] [CONS] Routine Comment: Evaluate, develop and implement POC Reason for Consult: disposition Does patient have active BEDREST order?: No Is patient medically & hemodynamically stable?: Yes Patient assessed for mobility or mobilized this visit?: Yes 05/16/19 07:30 Consult to Case Management [CONS] Routine Comment: - Constitutional Vitals: Temp Pulse Resp BP Pulse Ox 98.3 F 66 14 100/60 92 05/17/19 07:42 05/17/19 07:42 05/17/19 07:42 05/17/19 07:42 05/17/19 07:42 Exam: General: Patient is alert, oriented, no acute distress, obese, speaks in full sentences Head: atraumatic, normocephalic, Eye: normal appearance, PERRL, no scleral icterus, no conjunctival injection ENT: mucous membranes moist, normal external ear exam Neck: normal inspection, trachea midline, full ROM, Chest: normal inspection, symmetric chest rise previous well-healed CABG scar Respiratory: Decreased breath sounds secondary to body habitus, could not appreciate any crackles or wheezing. Cardiovascular: Regular rate and rhythm. s1 and s2 No clicks, rubs, gallops, or murmors. Abdomen: Bowel sounds present normoactive x-4 quadrants. Abdomen is soft, no Epigastric tenderness. No guarding or rebound. no pain on palpation No organomegaly noted, obese, no CVA tenderness bilaterally musculoskeletal: Spontaneously moving all extremities. no edema, no calf tenderness Skin: warm, dry, intact. Neuro: Alert and oriented x3 no focal deficit Psych: Patient's affect is normal - Patient Status Disposition: Home, Self-Care Condition: Fair Functional capacity at discharge: independent ambulation Overall status at discharge: patient is progressing back to baseline - Discharge Instructions Instructions: Urinary Tract Infection in Women (DC) Follow Up With: Muriel Bardales MD [Primary Care Provider] - 05/24/19 11:00 am Isaias Malin MD [Non-Partnered Physician] - 05/23/19 3:05 pm Curtis Ortiz MD [Partnered Physician] - 05/30/19 9:15 am Aroldo Whaley MD [Partnered Physician] - (Web request. Office will call with date and time of appointment. Thank you) - Diet and Activity Activity: increase activity as tolerated Diet: diabetic diet, low salt diet
[2019-05-17 12:08] VITALS: BP 126/78
--- NOTE | 2019-05-17 13:44 | Physician Discharge Referral ---
Home Health/Hosp Referral Info Transfer to: Home Health Provider in Charge Post Discharge: PCP - Diagnosis (1) Pyelonephritis Status: Acute (2) Urolithiasis Status: Suspected (3) Septic shock Status: Acute (4) Anemia Status: Acute (5) ARF (acute renal failure) Status: Acute (6) CAD (coronary artery disease) Status: Chronic (7) DM2 (diabetes mellitus, type 2) Status: Chronic (8) Hypothyroidism (acquired) Status: Acute (9) Morbidly obese Status: Acute (10) Vitamin D deficiency Status: Acute (11) Iron deficiency anemia Status: Acute (12) B12 deficiency Status: Acute (13) DVT prophylaxis Status: Acute - Respiratory Orders Smoking Cessation: Smoking cessation has been advised. For more information, call the [employer] Quit Line at [phone]. - Diet/Nutrition Diet/Nutrition Orders: Cardiac (diabetic) - Activity Activity Orders: Ambulate - Services Needed Following services are medically necessary services: Nursing, Home Health Aide, Physical Therapy - Transfer Medications Prescriptions: Lactobacillus [Culturelle] 1 each PO DAILY #13 cap.sprink Ergocalciferol (VITAMIN D2) [Drisdol (50,000 Unit)] 50,000 unit PO QWEEK #5 capsule Bisacodyl [Dulcolax] 10 mg RC DAILY PRN #10 supp.rect PRN Reason: Constipation/abd pain Ferrous Sulfate 325 mg PO BIDWM #30 tablet Cefdinir [Omnicef] 300 mg PO BID 13 Days #26 capsule Cyanocobalamin (B-12) [Vitamin B12] 1,000 mcg PO DAILY 14 Days tablet Home Medications: Atorvastatin Calcium [Lipitor] 80 mg PO HS 06/14/16 [History] Clopidogrel [Plavix] 75 mg PO DAILY 06/14/16 [History] Duloxetine HCl [Cymbalta] 60 mg PO DAILY 06/14/16 [History] Gabapentin [Neurontin] 600 mg PO TID 06/14/16 [History] Nitroglycerin [Nitrostat] 0.4 mg SL Q5M PRN 06/14/16 [History] Primidone [Mysoline] 100 mg PO QAM 06/14/16 [History] metFORMIN [Glucophage] 1,000 mg PO HS 06/14/16 [History] Aspirin Enteric Coated [Aspirin EC] 81 mg PO DAILY 05/14/19 [History] Diclofenac Sodium 2 - 4 gm TP QID PRN 05/14/19 [History] Docusate Sodium [Dok] 100 mg PO DAILY PRN 05/14/19 [History] Doxepin HCl 10 mg PO HS 05/14/19 [History] Doxepin HCl 20 mg PO QAM 05/14/19 [History] Insulin Degludec [Tresiba Flextouch U-100] 32 unit SQ HS 05/14/19 [History] Latanoprost [Xalatan] 1 drop BOTH EYES BID 05/14/19 [History] Levothyroxine Sodium [Euthyrox] 75 mcg PO QAM 05/14/19 [History] Metoprolol [Lopressor] 12.5 mg PO BID 05/14/19 [History] Primidone [Mysoline] 50 mg PO HS 05/14/19 [History] raNITIdine HCl [Zantac] 150 mg PO BID 05/14/19 [History] Bisacodyl [Dulcolax] 10 mg RC DAILY PRN #10 supp.rect 05/17/19 [Rx] Cefdinir [Omnicef] 300 mg PO BID 13 Days #26 capsule 05/17/19 [Rx] Cyanocobalamin (B-12) [Vitamin B12] 1,000 mcg PO DAILY 14 Days tablet 05/17/19 [Rx] Ergocalciferol (VITAMIN D2) [Drisdol (50,000 Unit)] 50,000 unit PO QWEEK #5 capsule 05/17/19 [Rx] Ferrous Sulfate 325 mg PO BIDWM #30 tablet 05/17/19 [Rx] Lactobacillus [Culturelle] 1 each PO DAILY #13 cap.sprink 05/17/19 [Rx] Lisinopril [Zestril] 2.5 mg PO DAILY #0 05/17/19 [Rx] Allergies/Adverse Reactions: Allergy/AdvReac Type Severity Reaction Status Date / Time Iodinated Contrast- Oral and Allergy Anaphylaxis Verified 05/14/19 11:41 IV Dye [Iodinated Contrast Media - IV Dye] levofloxacin [From Levaquin] Allergy Hives Verified 05/14/19 11:41 canagliflozin [From Invokana] AdvReac See Verified 05/14/19 11:41 Comments Certification: Further, I certify that my clinical findings support that this patient is homebound (i.e. absences from home require considerable and taxing effort and are for medical reasons or anabaptist services or infrequently or short duration when for other reasons) because: Homebound Reason: Patient requires assistance of a person or device to safely leave home Attestation: My signature below is to certify that this patient is under my care and that I, or nurse practitioner, or a physician's child life assistant working with me, has a [id number] encounter with this patient.
== END 2019-05-17 14:50 | disposition home or self-care (01) | DRG 720 ==
LOC: 3ANU 23:38 → EMEROOARM 23:38 → 3ANU 05-13 03:52 → ICNU 05-13 17:44 → 3ANU 05-15 13:34
PROVIDERS: ADMIT Family Medicine; ATTEND Internal Medicine

== ENCOUNTER 2019-11-14 13:34 | Inpatient (IN) ==
[2019-11-14] MEDS ORDERED: 0.9 % Sodium Chloride 500 ML IVC ONE (15:14)
[2019-11-14] MEDS ORDERED: Ketorolac 15 MG/ML VIAL IVP ONE (15:14)
[2019-11-14 16:26] LABS: Basophils % 0.3 %; Eosinophils # 0.1 K/mcL (0.0-0.6); Eosinophils % 0.4 %; Hemoglobin 11.7 g/dL (11.5-15.4); Immature Granulocytes % 0.4 % (0-4); Lymphocytes # 1.2 K/mcL (0.6-4.6); Lymphocytes % 10.1 %; Mean Corpuscular HGB Conc 31.6 g/dL (31.6-35.5); Mean Corpuscular Hemoglobin 29.1 pg (28.0-33.3); Monocytes # 0.4 K/mcL (0.0-1.3); Monocytes % 3.3 %; Neutrophils # 9.7 K/mcL (1.6-8.9); Platelet Count 204 K/mcL (140-400); Red Blood Count 4.02 M/mcL (3.82-4.97); Red Cell Distribution Width 14.6 % (11.5-14.5); Segmented Neutrophils % 85.5 %; White Blood Count 11.4 K/mcL (4.3-11.1)
[2019-11-14 16:47] LABS: Alanine Aminotransferase 19 Units/L (7-52); Albumin/Globulin Ratio 1.1 (1.1-2.2); Alkaline Phosphatase 68 Units/L (34-104); Bilirubin,Total 0.6 mg/dL (0.3-1.0); Blood Urea Nitrogen 18 mg/dL (8-23); Calcium 10.1 mg/dL (8.6-10.3); Carbon Dioxide 21 mEq/L (23-29); Chloride 100 mEq/L (98-107); Globulin 3.7 g/dL (2.4-3.5); Glucose 309 mg/dL (70-105); Lipase 30 Units/L (11-82); Osmolality,Calculated 288 (280-300); Potassium 4.8 mEq/L (3.5-5.1); Sodium 132 mEq/L (136-145); Total Protein 7.7 g/dL (6.4-8.9)
[2019-11-14 17:02] LABS: BUN/Creatinine Ratio 16 (6-26); eGFR For African Americans 56 (> 60); eGFR For Non-African Americans 46 (> 60)
[2019-11-14] MEDS ORDERED: *HR* OxyCODONE Immed Rel 5 MG TABLET PO PRN (17:47)
[2019-11-14] MEDS ORDERED: *HR* HYDROcodone/Acet 5/325 mg TABLET PO PRN (17:47)
[2019-11-14] MEDS ORDERED: Naloxone 0.4 MG/ML INJ IVP PRN (17:47)
[2019-11-14] MEDS ORDERED: Ondansetron 4 MG/2 ML VIAL IVP PRN (17:47)
[2019-11-14] MEDS ORDERED: D5% in Water 1,000 ML IVC PRN (17:50)
[2019-11-14] MEDS ORDERED: Dextrose Gel 15 GM/37.5 ML TUBE PO PRN ×2 (17:50)
[2019-11-14] MEDS ORDERED: *HR* Dextrose 50 % in Water (Syg) 50 ML SYRINGE IVP PRN (17:50)
[2019-11-14] MEDS ORDERED: Bisacodyl 10 MG RECTAL SUPPOSITORY RC PRN (17:58)
[2019-11-14] MEDS ORDERED: cefTRIAXone 2,000 MG in Water for inj. (sterile) 20 ML IVP SCH (18:00)
[2019-11-14] MEDS: 0.9 % Sodium Chloride 1,000 ML IVC SCH (19:57)
[2019-11-14] MEDS: *HR* Heparin 5,000 UNIT/ML VIAL SQ SCH (20:02)
[2019-11-14] MEDS: Gabapentin 300 MG CAPSULE PO SCH (20:05)
[2019-11-14] MEDS ORDERED: Insulin DETEMIR 100 UNIT/ML X5UNITS SQ SCH (21:00)
[2019-11-15 01:31] LABS: Bilirubin,Urine Negative (Negative); Blood,Urine Large (Negative); Clarity,Urine Turbid (Clear); Color,Urine Yellow (Yellow); Glucose,Urine (UA) 100 mg/dL (Normal); Ketones,Urine Negative (Negative); Leukocyte Esterase,Urine Large (Negative); Nitrite,Urine Positive (Negative); PH,Urine 5.5 pH Units (5.0-8.0); Protein,Urine 100 mg/dL (Neg-Trace); Specific Gravity,Urine 1.018 (1.010-1.025); Urobilinogen,Urine Normal (Normal)
[2019-11-15 01:33] LABS: Bacteria,Urine Many per hpf (None-Few); Squamous Epithelial Cell,Urine Many per lpf (None-Few); WBC,Urine TNTC per hpf (0-3)
[2019-11-15] MEDS: Acetaminophen 325 MG TABLET PO PRN ×2 (01:41→10:47)
[2019-11-15 01:51] LABS: RBC,Urine 50-100 per hpf (0-3)
[2019-11-15] MEDS: 0.9 % Sodium Chloride 1,000 ML IVC SCH (04:44)
[2019-11-15] MEDS ORDERED: 0.9 % Sodium Chloride 1,000 ML IV ONE (04:54)
[2019-11-15] MEDS: *HR* Heparin 5,000 UNIT/ML VIAL SQ SCH ×2 (05:58→17:50)
[2019-11-15] MEDS ORDERED: Aspirin Enteric Coated 81 MG Tablet PO SCH (09:00)
[2019-11-15] MEDS: Insulin LISPRO 300 UNITS/3 ML VIAL SQ SCH ×3 (10:18→17:47)
[2019-11-15 10:39] LABS: Basophils % 0.2 %; Eosinophils % 0.2 %; Hematocrit 31.4 % (35.3-44.9); Hemoglobin 10.2 g/dL (11.5-15.4); Immature Granulocytes % 0.6 % (0-4); Lymphocytes # 1.9 K/mcL (0.6-4.6); Lymphocytes % 17.5 %; Mean Corpuscular HGB Conc 32.5 g/dL (31.6-35.5); Mean Corpuscular Hemoglobin 28.7 pg (28.0-33.3); Mean Corpuscular Volume 88.2 fL (83.0-100.0); Mean Platelet Volume 9.1 fL (9.4-12.4); Monocytes # 0.8 K/mcL (0.0-1.3); Neutrophils # 8.1 K/mcL (1.6-8.9); Platelet Count 169 K/mcL (140-400); Red Blood Count 3.56 M/mcL (3.82-4.97); Red Cell Distribution Width 15.1 % (11.5-14.5); Segmented Neutrophils % 74.5 %; White Blood Count 10.9 K/mcL (4.3-11.1)
[2019-11-15] MEDS: Gabapentin 300 MG CAPSULE PO SCH ×2 (10:42→20:36)
[2019-11-15 10:56] LABS: Calcium 8.3 mg/dL (8.6-10.3); Potassium 4.1 mEq/L (3.5-5.1)
[2019-11-15] MEDS ORDERED: 0.9 % Sodium Chloride 500 ML IVC ONE (12:26)
[2019-11-15] MEDS: 0.9 % Sodium Chloride 1,000 ML IVC ONE ×2 (12:34→13:16)
[2019-11-15] MEDS ORDERED: *HR* Propofol 200 MG/20 ML VIAL IVP ONE (13:15)
[2019-11-15] MEDS ORDERED: Lidocaine -MPF 2% 2 ML VIAL ONE (13:15)
[2019-11-15] MEDS ORDERED: Ondansetron 4 MG/2 ML VIAL ONE (13:15)
[2019-11-15] MEDS ORDERED: Ondansetron 4 MG/2 ML VIAL IVP ONE ×2 (13:45→15:50)
[2019-11-15] MEDS ORDERED: *HR* HYDROmorphone (PF) 1 MG/ML SYRINGE IVP PRN (13:45)
[2019-11-15] MEDS ORDERED: *HR* Promethazine 25 MG/ML VIAL IVP PRN (13:45)
[2019-11-15] MEDS ORDERED: *HR* OxyCODONE Immed Rel 5 MG TABLET PO PRN ×3 (13:45→15:50)
[2019-11-15] MEDS ORDERED: *HR* Succinylcholine 200 MG/10 ML VIAL IVP ONE (13:54)
[2019-11-15] MEDS ORDERED: Lidocaine HCL 4 ML Topical Solution (Laryng-O-Jet Kit Sterile Pak) TP ONE (13:56)
[2019-11-15] MEDS ORDERED: *HR* FentaNYL (PF) 100 MCG/2 ML VIAL ONE (13:57)
[2019-11-15] MEDS ORDERED: *HR* PHENYLEPHRINE 1,000 MCG/10 ML SYRINGE IVP ONE (14:17)
[2019-11-15] MEDS ORDERED: Ondansetron 4 MG/2 ML VIAL IVP PRN (15:50)
[2019-11-15] MEDS ORDERED: Acetaminophen 325 MG TABLET PO PRN (15:50)
[2019-11-15] MEDS ORDERED: Naloxone 0.4 MG/ML INJ IVP PRN (15:50)
[2019-11-15] MEDS ORDERED: Bisacodyl 10 MG RECTAL SUPPOSITORY RC PRN (15:50)
[2019-11-15] MEDS ORDERED: D5% in Water 1,000 ML IVC PRN (15:50)
[2019-11-15] MEDS ORDERED: Dextrose Gel 15 GM/37.5 ML TUBE PO PRN ×2 (15:50)
[2019-11-15] MEDS ORDERED: *HR* Dextrose 50 % in Water (Syg) 50 ML SYRINGE IVP PRN (15:50)
[2019-11-15] MEDS: cefTRIAXone 2,000 MG in Water for inj. (sterile) 20 ML IVP SCH (17:47)
[2019-11-15] MEDS: Insulin DETEMIR 100 UNIT/ML X5UNITS SQ SCH (20:36)
[2019-11-15] MEDS: *HR* HYDROcodone/Acet 5/325 mg TABLET PO PRN (20:42)
[2019-11-16] MEDS: *HR* HYDROcodone/Acet 5/325 mg TABLET PO PRN ×2 (05:23→19:39)
[2019-11-16] MEDS: *HR* Heparin 5,000 UNIT/ML VIAL SQ SCH ×2 (05:34→16:27)
[2019-11-16] MEDS: Aspirin Enteric Coated 81 MG Tablet PO SCH (09:13)
[2019-11-16] MEDS: Insulin LISPRO 300 UNITS/3 ML VIAL SQ SCH ×3 (09:14→16:36)
[2019-11-16] MEDS: Gabapentin 300 MG CAPSULE PO SCH ×2 (09:14→20:52)
[2019-11-16] MEDS: Famotidine 20 MG TABLET PO SCH ×2 (10:20→20:51)
[2019-11-16] MEDS: DOXEPIN 10 MG PO SCH ×2 (10:20→20:52)
[2019-11-16] MEDS: Simethicone 80 MG TAB.CHEW PO PRN ×2 (10:20→13:12)
[2019-11-16 10:31] LABS: Basophils % 0.3 %; Eosinophils # 0.1 K/mcL (0.0-0.6); Eosinophils % 1.1 %; Hematocrit 29.6 % (35.3-44.9); Hemoglobin 9.5 g/dL (11.5-15.4); Immature Granulocytes % 0.4 % (0-4); Lymphocytes # 1.5 K/mcL (0.6-4.6); Lymphocytes % 20.7 %; Mean Corpuscular HGB Conc 32.1 g/dL (31.6-35.5); Mean Corpuscular Hemoglobin 28.7 pg (28.0-33.3); Mean Corpuscular Volume 89.4 fL (83.0-100.0); Mean Platelet Volume 9.4 fL (9.4-12.4); Monocytes # 0.5 K/mcL (0.0-1.3); Monocytes % 7.1 %; Neutrophils # 5.2 K/mcL (1.6-8.9); Platelet Count 145 K/mcL (140-400); Red Blood Count 3.31 M/mcL (3.82-4.97); Red Cell Distribution Width 15.2 % (11.5-14.5); Segmented Neutrophils % 70.4 %; White Blood Count 7.3 K/mcL (4.3-11.1)
[2019-11-16 10:51] LABS: Albumin 3.1 g/dL (3.5-5.7); Bilirubin,Total 0.6 mg/dL (0.3-1.0); Calcium 8.5 mg/dL (8.6-10.3); Potassium 3.8 mEq/L (3.5-5.1); Total Protein 6.1 g/dL (6.4-8.9)
[2019-11-16] MEDS ORDERED: NON-FORMULARY MEDICATION 1 EACH EACH TP PRN (13:35)
[2019-11-16] MEDS: cefTRIAXone 2,000 MG in Water for inj. (sterile) 20 ML IVP SCH (16:35)
[2019-11-16] MEDS: Insulin DETEMIR 100 UNIT/ML X5UNITS SQ SCH (20:52)
[2019-11-16] MEDS: Latanoprost 2.5 ML BOTTLE BOTH EYES SCH (20:52)
[2019-11-17] MEDS: *HR* Heparin 5,000 UNIT/ML VIAL SQ SCH ×2 (06:28→17:30)
[2019-11-17] MEDS: Insulin LISPRO 300 UNITS/3 ML VIAL SQ SCH ×3 (07:53→17:32)
[2019-11-17] MEDS: DOXEPIN 10 MG PO SCH (07:54)
[2019-11-17] MEDS: Aspirin Enteric Coated 81 MG Tablet PO SCH (07:54)
[2019-11-17] MEDS: Gabapentin 300 MG CAPSULE PO SCH ×2 (07:54→20:09)
[2019-11-17] MEDS: Famotidine 20 MG TABLET PO SCH (07:55)
[2019-11-17 09:53] LABS: Basophils % 0.5 %; Eosinophils # 0.1 K/mcL (0.0-0.6); Eosinophils % 2.4 %; Hematocrit 28.6 % (35.3-44.9); Hemoglobin 9.4 g/dL (11.5-15.4); Immature Granulocytes % 0.3 % (0-4); Lymphocytes # 1.3 K/mcL (0.6-4.6); Lymphocytes % 22.4 %; Mean Corpuscular HGB Conc 32.9 g/dL (31.6-35.5); Mean Corpuscular Volume 88.3 fL (83.0-100.0); Mean Platelet Volume 9.3 fL (9.4-12.4); Monocytes # 0.5 K/mcL (0.0-1.3); Monocytes % 8.5 %; Neutrophils # 3.9 K/mcL (1.6-8.9); Platelet Count 146 K/mcL (140-400); Red Blood Count 3.24 M/mcL (3.82-4.97); Red Cell Distribution Width 14.7 % (11.5-14.5); Segmented Neutrophils % 65.9 %; White Blood Count 5.9 K/mcL (4.3-11.1)
[2019-11-17 10:10] LABS: Bilirubin,Total 0.4 mg/dL (0.3-1.0); Calcium 9.3 mg/dL (8.6-10.3); Globulin 3.1 g/dL (2.4-3.5); Potassium 3.9 mEq/L (3.5-5.1); Total Protein 6.1 g/dL (6.4-8.9)
[2019-11-17] MEDS ORDERED: Furosemide 20 MG TABLET PO ONE (14:59)
[2019-11-17] MEDS ORDERED: Bisacodyl 10 MG RECTAL SUPPOSITORY RC PRN (15:32)
[2019-11-17] MEDS: cefTRIAXone 2,000 MG in Water for inj. (sterile) 20 ML IVP SCH (17:34)
[2019-11-17] MEDS: Primidone 50 MG TABLET PO SCH (20:09)
[2019-11-17] MEDS: Latanoprost 2.5 ML BOTTLE BOTH EYES SCH (20:11)
[2019-11-17] MEDS: Simethicone 80 MG TAB.CHEW PO PRN (20:12)
[2019-11-17] MEDS ORDERED: Insulin DETEMIR 100 UNIT/ML X5UNITS SQ SCH (21:00)
[2019-11-18] MEDS: *HR* Heparin 5,000 UNIT/ML VIAL SQ SCH ×2 (05:35→18:00)
[2019-11-18] MEDS: Gabapentin 300 MG CAPSULE PO SCH ×2 (08:17→21:52)
[2019-11-18] MEDS: Famotidine 20 MG TABLET PO SCH (08:17)
[2019-11-18] MEDS: Primidone 50 MG TABLET PO SCH ×3 (08:17→21:52)
[2019-11-18] MEDS: Aspirin Enteric Coated 81 MG Tablet PO SCH (08:17)
[2019-11-18] MEDS: Insulin LISPRO 300 UNITS/3 ML VIAL SQ SCH ×3 (08:18→18:01)
[2019-11-18] MEDS ORDERED: Furosemide 20 MG TABLET PO ONE (13:04)
[2019-11-18] MEDS: cephALEXin 500 MG CAPSULE PO SCH (18:01)
[2019-11-18] MEDS: Insulin DETEMIR 100 UNIT/ML X5UNITS SQ SCH (21:57)
[2019-11-18] MEDS: Latanoprost 2.5 ML BOTTLE BOTH EYES SCH (21:58)
[2019-11-19] MEDS: *HR* HYDROcodone/Acet 5/325 mg TABLET PO PRN (00:27)
[2019-11-19 03:39] LABS: Hemoglobin 10.5 g/dL (11.5-15.4); Mean Corpuscular HGB Conc 32.8 g/dL (31.6-35.5); Mean Corpuscular Volume 88.4 fL (83.0-100.0); Mean Platelet Volume 9.5 fL (9.4-12.4); Platelet Count 202 K/mcL (140-400); Red Blood Count 3.62 M/mcL (3.82-4.97); Red Cell Distribution Width 14.6 % (11.5-14.5); White Blood Count 5.9 K/mcL (4.3-11.1)
[2019-11-19 03:59] LABS: Calcium 10.3 mg/dL (8.6-10.3); Magnesium 1.7 mg/dL (1.6-2.6); Potassium 3.8 mEq/L (3.5-5.1)
[2019-11-19] MEDS: *HR* Heparin 5,000 UNIT/ML VIAL SQ SCH ×2 (05:18→17:26)
[2019-11-19] MEDS: cephALEXin 500 MG CAPSULE PO SCH ×2 (08:36→21:09)
[2019-11-19] MEDS: Gabapentin 300 MG CAPSULE PO SCH ×2 (08:36→21:06)
[2019-11-19] MEDS: Famotidine 20 MG TABLET PO SCH (08:36)
[2019-11-19] MEDS: Primidone 50 MG TABLET PO SCH ×3 (08:36→21:11)
[2019-11-19] MEDS: Aspirin Enteric Coated 81 MG Tablet PO SCH (08:36)
[2019-11-19] MEDS: Insulin LISPRO 300 UNITS/3 ML VIAL SQ SCH ×3 (08:38→17:27)
[2019-11-19] MEDS: Latanoprost 2.5 ML BOTTLE BOTH EYES SCH (21:11)
[2019-11-19] MEDS: Insulin DETEMIR 100 UNIT/ML X5UNITS SQ SCH (21:15)
[2019-11-20 02:25] LABS: Calcium 10.7 mg/dL (8.6-10.3); Potassium 4.3 mEq/L (3.5-5.1)
[2019-11-20] MEDS: *HR* Heparin 5,000 UNIT/ML VIAL SQ SCH (05:58)
[2019-11-20] MEDS: Primidone 50 MG TABLET PO SCH ×2 (08:30→16:12)
[2019-11-20] MEDS: Gabapentin 300 MG CAPSULE PO SCH (08:30)
[2019-11-20] MEDS: Famotidine 20 MG TABLET PO SCH (08:30)
[2019-11-20] MEDS: Aspirin Enteric Coated 81 MG Tablet PO SCH (08:30)
[2019-11-20] MEDS: cephALEXin 500 MG CAPSULE PO SCH ×2 (08:30→16:12)
[2019-11-20] MEDS: Insulin LISPRO 300 UNITS/3 ML VIAL SQ SCH ×2 (08:30→12:02)
[2019-11-20 11:49] VITALS: BP 117/69
[2019-11-20] MEDS ORDERED: FLU Vac QV 19-20 (6Month+)/PF 0.5 ML SYRINGE IM ONE (15:06)
[2019-11-22] MEDS ORDERED: Famotidine 20 MG TABLET PO SCH (09:00)
== END 2019-11-20 17:23 | disposition home or self-care (01) | DRG 463 ==
LOC: SUATTDRO → EMEROOARM 13:34 → CDU 13:34 → SUATTDRO 11-15 00:41 → CDU 11-15 01:05 → 2NENU 11-15 14:04 → SUATTDRO 11-16 13:28
PROVIDERS: ADMIT Internal Medicine; ATTEND Internal Medicine

== ENCOUNTER 2021-01-24 14:16 | Inpatient (IN) ==
[2021-01-24] MEDS ORDERED: Naloxone 0.4 MG/ML INJ IVP PRN (16:53)
[2021-01-24] MEDS ORDERED: Dextrose Gel 15 GM/37.5 ML TUBE PO PRN ×2 (17:10)
[2021-01-24] MEDS ORDERED: D5% in Water 1,000 ML IVC PRN (17:10)
[2021-01-24] MEDS ORDERED: *HR* Dextrose 50 % in Water (Vial) 50 ML VIAL IVP PRN (17:10)
[2021-01-24] MEDS: Insulin LISPRO 300 UNITS/3 ML VIAL SUBQ SCH ×2 (17:40→21:25)
[2021-01-24 19:44] LABS: Influenza A PCR Negative (Negative); Influenza B PCR Negative (Negative); Resp. Syncytial Virus PCR Negative (Negative)
[2021-01-24 19:46] LABS: SARS-CoV-2 by PCR (In House) Negative (Negative)
[2021-01-25 06:36] LABS: Basophils % 0.6 %; Eosinophils # 0.2 K/mcL (0.0-0.6); Eosinophils % 2.9 %; Hematocrit 32.9 % (35.3-44.9); Hemoglobin 10.6 g/dL (11.5-15.4); Immature Granulocytes % 0.4 % (0-4); Lymphocytes # 1.6 K/mcL (0.6-4.6); Lymphocytes % 23.7 %; Mean Corpuscular HGB Conc 32.2 g/dL (31.6-35.5); Mean Corpuscular Hemoglobin 32.1 pg (28.0-33.3); Mean Corpuscular Volume 99.7 fL (83.0-100.0); Mean Platelet Volume 9.3 fL (9.4-12.4); Monocytes # 0.6 K/mcL (0.0-1.3); Monocytes % 8.6 %; Neutrophils # 4.4 K/mcL (1.6-8.9); Platelet Count 163 K/mcL (140-400); Red Cell Distribution Width 15.3 % (11.5-14.5); Segmented Neutrophils % 63.8 %; White Blood Count 6.9 K/mcL (4.3-11.1)
[2021-01-25 06:55] LABS: Albumin 3.4 g/dL (3.5-5.7); Albumin/Globulin Ratio 0.9 (1.1-2.2); Bilirubin,Total 0.6 mg/dL (0.3-1.0); Calcium 8.8 mg/dL (8.6-10.3); Globulin 3.6 g/dL (2.4-3.5); Potassium 3.7 mEq/L (3.5-5.1)
[2021-01-25] MEDS: Insulin LISPRO 300 UNITS/3 ML VIAL SUBQ SCH ×4 (07:35→21:00)
[2021-01-25] MEDS ORDERED: Lidocaine -MPF 2% 2 ML VIAL ONE (08:27)
[2021-01-25] MEDS ORDERED: *HR* Propofol 200 MG/20 ML VIAL IVP ONE ×3 (08:27→09:43)
[2021-01-25] MEDS ORDERED: *HR* Etomidate 40 MG/20 ML VIAL IVP ONE (08:27)
[2021-01-25] MEDS: Gabapentin 300 MG CAPSULE PO SCH ×2 (14:59→20:59)
[2021-01-25] MEDS ORDERED: Gabapentin 300 MG CAPSULE PO SCH (15:00)
[2021-01-25] MEDS: Primidone 50 MG TABLET PO SCH ×2 (15:00→20:59)
[2021-01-25 16:05] LABS: Hematocrit 31.5 % (35.3-44.9); Hemoglobin 10.3 g/dL (11.5-15.4)
[2021-01-25] MEDS: Acetaminophen 325 MG TABLET PO PRN (17:03)
[2021-01-25 21:19] LABS: Hematocrit 31.6 % (35.3-44.9); Hemoglobin 10.3 g/dL (11.5-15.4)
[2021-01-26] MEDS ORDERED: 0.9 % Sodium Chloride 500 ML IVC ONE ×2 (02:15→02:38)
[2021-01-26] MEDS ORDERED: 0.9 % Sodium Chloride 500 ML ONE (02:17)
[2021-01-26] MEDS: Acetaminophen 325 MG TABLET PO PRN ×2 (02:19→08:36)
[2021-01-26 03:25] LABS: Basophils % 0.3 %; Eosinophils # 0.1 K/mcL (0.0-0.6); Eosinophils % 1.2 %; Hematocrit 30.6 % (35.3-44.9); Hemoglobin 10.1 g/dL (11.5-15.4); Immature Granulocytes % 0.4 % (0-4); Lymphocytes # 1.3 K/mcL (0.6-4.6); Lymphocytes % 12.6 %; Mean Corpuscular Hemoglobin 32.2 pg (28.0-33.3); Mean Corpuscular Volume 97.5 fL (83.0-100.0); Mean Platelet Volume 9.2 fL (9.4-12.4); Monocytes # 0.7 K/mcL (0.0-1.3); Monocytes % 7.2 %; Neutrophils # 7.9 K/mcL (1.6-8.9); Platelet Count 153 K/mcL (140-400); Red Blood Count 3.14 M/mcL (3.82-4.97); Red Cell Distribution Width 14.8 % (11.5-14.5); Segmented Neutrophils % 78.3 %
[2021-01-26 03:36] LABS: Calcium 8.8 mg/dL (8.6-10.3); Potassium 3.7 mEq/L (3.5-5.1)
[2021-01-26] MEDS: Piperacillin/Tazobactam 3.375 GM in 0.9 % Sodium Chloride Mini Bag 100 ML IVPB SCH ×3 (03:42→18:40)
[2021-01-26] MEDS ORDERED: 0.9 % Sodium Chloride 1,000 ML IV ONE ×2 (04:00→10:24)
[2021-01-26] MEDS: Primidone 50 MG TABLET PO SCH ×3 (08:34→21:48)
[2021-01-26] MEDS: Gabapentin 300 MG CAPSULE PO SCH ×3 (08:34→21:47)
[2021-01-26] MEDS: Famotidine 20 MG TABLET PO SCH (08:34)
[2021-01-26] MEDS: Insulin LISPRO 300 UNITS/3 ML VIAL SUBQ SCH ×4 (08:39→21:48)
[2021-01-26] MEDS ORDERED: 0.9 % Sodium Chloride 1,000 ML ONE (10:27)
[2021-01-26 10:48] LABS: Basophils % 0.2 %; Eosinophils % 0.2 %; Hemoglobin 10.7 g/dL (11.5-15.4); Immature Granulocytes % 0.6 % (0-4); Lymphocytes # 1.3 K/mcL (0.6-4.6); Lymphocytes % 10.8 %; Mean Corpuscular HGB Conc 32.4 g/dL (31.6-35.5); Mean Corpuscular Hemoglobin 31.5 pg (28.0-33.3); Mean Corpuscular Volume 97.1 fL (83.0-100.0); Mean Platelet Volume 9.2 fL (9.4-12.4); Monocytes # 0.8 K/mcL (0.0-1.3); Monocytes % 6.3 %; Platelet Count 158 K/mcL (140-400); Red Cell Distribution Width 14.9 % (11.5-14.5); Segmented Neutrophils % 81.9 %; White Blood Count 12.2 K/mcL (4.3-11.1)
[2021-01-26 13:56] LABS: Amylase 19 Units/L (29-103); Lipase 22 Units/L (11-82)
[2021-01-27] MEDS: Piperacillin/Tazobactam 3.375 GM in 0.9 % Sodium Chloride Mini Bag 100 ML IVPB SCH ×3 (03:44→18:08)
[2021-01-27] MEDS: *HR* Enoxaparin 40 MG/0.4 ML SYRINGE SQ SCH (06:16)
[2021-01-27 07:53] LABS: Basophils % 0.4 %; Eosinophils # 0.2 K/mcL (0.0-0.6); Eosinophils % 2.5 %; Hematocrit 29.4 % (35.3-44.9); Hemoglobin 9.4 g/dL (11.5-15.4); Immature Granulocytes % 0.3 % (0-4); Lymphocytes # 1.6 K/mcL (0.6-4.6); Lymphocytes % 22.6 %; Mean Corpuscular Hemoglobin 32.2 pg (28.0-33.3); Mean Corpuscular Volume 100.7 fL (83.0-100.0); Mean Platelet Volume 9.3 fL (9.4-12.4); Monocytes # 0.5 K/mcL (0.0-1.3); Monocytes % 7.4 %; Neutrophils # 4.8 K/mcL (1.6-8.9); Platelet Count 139 K/mcL (140-400); Red Blood Count 2.92 M/mcL (3.82-4.97); Segmented Neutrophils % 66.8 %; White Blood Count 7.2 K/mcL (4.3-11.1)
[2021-01-27 08:15] LABS: Albumin 3.1 g/dL (3.5-5.7); Albumin/Globulin Ratio 0.9 (1.1-2.2); Bilirubin,Total 0.8 mg/dL (0.3-1.0); Calcium 8.6 mg/dL (8.6-10.3); Globulin 3.4 g/dL (2.4-3.5); Potassium 3.6 mEq/L (3.5-5.1); Total Protein 6.5 g/dL (6.4-8.9)
[2021-01-27] MEDS: Insulin LISPRO 300 UNITS/3 ML VIAL SUBQ SCH ×4 (08:33→20:57)
[2021-01-27] MEDS: Primidone 50 MG TABLET PO SCH ×3 (08:34→20:14)
[2021-01-27] MEDS: Gabapentin 300 MG CAPSULE PO SCH ×3 (08:34→20:14)
[2021-01-27] MEDS: Famotidine 20 MG TABLET PO SCH (08:34)
[2021-01-27] MEDS ORDERED: Isovue-370 500 ML BOTTLE IVP ONE (09:16)
[2021-01-27] MEDS ORDERED: Gadolinium Contrast Agent (WT Based) IV PRN (09:16)
[2021-01-27 11:05] LABS: Hematocrit 29.9 % (35.3-44.9); Hemoglobin 9.5 g/dL (11.5-15.4)
[2021-01-27] MEDS: Acetaminophen 325 MG TABLET PO PRN (18:13)
[2021-01-28 01:58] LABS: Basophils # 0.1 K/mcL (0.0-0.2); Basophils % 0.7 %; Eosinophils # 0.3 K/mcL (0.0-0.6); Eosinophils % 3.4 %; Hematocrit 32.7 % (35.3-44.9); Hemoglobin 10.4 g/dL (11.5-15.4); Immature Granulocytes % 0.5 % (0-4); Lymphocytes # 1.8 K/mcL (0.6-4.6); Mean Corpuscular HGB Conc 31.8 g/dL (31.6-35.5); Mean Corpuscular Hemoglobin 31.3 pg (28.0-33.3); Mean Corpuscular Volume 98.5 fL (83.0-100.0); Monocytes # 0.4 K/mcL (0.0-1.3); Monocytes % 5.6 %; Neutrophils # 5.1 K/mcL (1.6-8.9); Platelet Count 167 K/mcL (140-400); Red Blood Count 3.32 M/mcL (3.82-4.97); Red Cell Distribution Width 14.8 % (11.5-14.5); Segmented Neutrophils % 65.8 %; White Blood Count 7.7 K/mcL (4.3-11.1)
[2021-01-28] MEDS: Piperacillin/Tazobactam 3.375 GM in 0.9 % Sodium Chloride Mini Bag 100 ML IVPB SCH ×2 (02:51→11:05)
[2021-01-28] MEDS: Acetaminophen 325 MG TABLET PO PRN (02:56)
[2021-01-28] MEDS: *HR* Enoxaparin 40 MG/0.4 ML SYRINGE SQ SCH (05:51)
[2021-01-28] MEDS ORDERED: 0.9 % Sodium Chloride 500 ML IV ONE (08:57)
[2021-01-28] MEDS ORDERED: 0.9 % Sodium Chloride 500 ML ONE (09:00)
[2021-01-28] MEDS: Insulin LISPRO 300 UNITS/3 ML VIAL SUBQ SCH ×2 (09:01→11:05)
[2021-01-28] MEDS: Famotidine 20 MG TABLET PO SCH (09:02)
[2021-01-28] MEDS: Gabapentin 300 MG CAPSULE PO SCH ×2 (09:02→14:40)
[2021-01-28] MEDS: Primidone 50 MG TABLET PO SCH ×2 (09:04→14:40)
[2021-01-28] MEDS ORDERED: Gadolinium Contrast Agent (WT Based) IV PRN (10:08)
[2021-01-28] MEDS ORDERED: Piperacillin/Tazobactam 3.375 GM VIAL ONE (11:03)
[2021-01-28 14:23] VITALS: BP 119/69
== END 2021-01-28 16:48 | disposition home or self-care (01) | DRG 254 ==
LOC: 3ANU → SUATTDRO 14:49
PROVIDERS: ADMIT Family Medicine; ATTEND Internal Medicine
PROC: ENDOEBX (2021-01-25 09:00)

== ENCOUNTER 2021-05-15 19:30 | Inpatient (IN) ==
[2021-05-15] MEDS ORDERED: Ondansetron 4 MG/2 ML VIAL IVP ONE ×2 (20:02→20:03)
[2021-05-15] MEDS ORDERED: *HR* FentaNYL (PF) 100 MCG/2 ML VIAL IVP ONE (20:03)
[2021-05-15] MEDS: 0.9 % Sodium Chloride 1,000 ML IVC SCH (21:43)
[2021-05-15 21:51] LABS: Basophils # 0.1 K/mcL (0.0-0.2); Basophils % 1.1 %; Eosinophils # 0.1 K/mcL (0.0-0.6); Eosinophils % 1.6 %; Hematocrit 41.5 % (35.3-44.9); Hemoglobin 13.6 g/dL (11.5-15.4); Immature Granulocytes % 0.5 % (0-4); Lymphocytes % 27.8 %; Mean Corpuscular HGB Conc 32.8 g/dL (31.6-35.5); Mean Corpuscular Hemoglobin 28.9 pg (28.0-33.3); Mean Corpuscular Volume 88.1 fL (83.0-100.0); Mean Platelet Volume 8.9 fL (9.4-12.4); Monocytes # 0.5 K/mcL (0.0-1.3); Monocytes % 6.6 %; Neutrophils # 4.6 K/mcL (1.6-8.9); Platelet Count 249 K/mcL (140-400); Red Blood Count 4.71 M/mcL (3.82-4.97); Red Cell Distribution Width 14.2 % (11.5-14.5); Segmented Neutrophils % 62.4 %; White Blood Count 7.3 K/mcL (4.3-11.1)
[2021-05-15 22:13] LABS: Alanine Aminotransferase 33 Units/L (7-52); Albumin 4.1 g/dL (3.5-5.7); Alkaline Phosphatase 65 Units/L (34-104); Aspartate Amino Transferase 36 Units/L (13-39); BUN/Creatinine Ratio 21 (6-26); Bilirubin,Direct 0.1 mg/dL (0.0-0.2); Bilirubin,Indirect 0.6 mg/dL (0.0-1.0); Bilirubin,Total 0.7 mg/dL (0.3-1.0); Blood Urea Nitrogen 29 mg/dL (8-23); Calcium 10.9 mg/dL (8.6-10.3); Carbon Dioxide 23 mEq/L (23-29); Chloride 97 mEq/L (98-107); Globulin 4.1 g/dL (2.4-3.5); Glucose 234 mg/dL (70-105); Lipase 62 Units/L (11-82); Osmolality,Calculated 285 (280-300); Potassium 4.2 mEq/L (3.5-5.1); Sodium 131 mEq/L (136-145); Total Protein 8.2 g/dL (6.4-8.9); Troponin I < 0.03 ng/mL (< 0.04); eGFR For African Americans 46 (> 60); eGFR For Non-African Americans 38 (> 60)
[2021-05-15] MEDS ORDERED: Piperacillin/Tazobactam 3.375 GM in Water for inj. (sterile) 20 ML IVP ONE (23:18)
[2021-05-16] MEDS ORDERED: 0.9 % Sodium Chloride 1,000 ML IVC ONE (00:17)
[2021-05-16 05:08] LABS: Bacteria,Urine Few per hpf (None-Few); Bilirubin,Urine Negative (Negative); Blood,Urine Trace (Negative); Budding Yeast,Urine Moderate per hpf (None Seen); Clarity,Urine Turbid (Clear); Color,Urine Light-Yellow (Yellow); Glucose,Urine (UA) >=1000 mg/dL (Normal); Ketones,Urine Negative (Negative); Leukocyte Esterase,Urine Moderate (Negative); Mucus,Urine Few per lpf (None-Few); Nitrite,Urine Negative (Negative); PH,Urine 5.5 pH Units (5.0-8.0); Protein,Urine Trace mg/dL (Neg-Trace); Specific Gravity,Urine 1.017 (1.010-1.025); Squamous Epithelial Cell,Urine Moderate per hpf (None-Few); Urobilinogen,Urine Normal (Normal)
[2021-05-16] MEDS ORDERED: Vancomycin 1,500 MG/265 ML IV.SOLN IVPB ONE (05:20)
[2021-05-16] MEDS ORDERED: Acetaminophen 325 MG TABLET PO PRN (07:08)
[2021-05-16] MEDS ORDERED: Ondansetron 4 MG/2 ML VIAL IVP PRN (07:08)
[2021-05-16] MEDS ORDERED: Ringers Solution, Lactated 1,000 ML IVC ONE (07:12)
[2021-05-16] MEDS ORDERED: *HR* Dextrose 50 % in Water (Vial) 50 ML VIAL IVP PRN (07:12)
[2021-05-16] MEDS ORDERED: D5% in Water 1,000 ML IVC PRN (07:12)
[2021-05-16] MEDS ORDERED: Dextrose Gel 15 GM/37.5 ML TUBE PO PRN ×2 (07:12)
[2021-05-16] MEDS ORDERED: *HR* OxyCODONE Immed Rel 5 MG TABLET PO PRN (07:20)
[2021-05-16] MEDS: Insulin LISPRO 300 UNITS/3 ML VIAL SUBQ SCH ×4 (11:54→19:36)
[2021-05-16] MEDS: Insulin DETEMIR 100 UNIT/ML X5UNITS SUBQ SCH (11:54)
[2021-05-16] MEDS: 0.9 % Sodium Chloride 1,000 ML IVC SCH ×4 (12:14→21:36)
[2021-05-16] MEDS: cefTRIAXone 2,000 MG in Water for inj. (sterile) 20 ML IVP SCH (12:18)
[2021-05-16] MEDS: *HR* Heparin 5,000 UNIT/ML VIAL SQ SCH ×2 (17:50→23:41)
[2021-05-16] MEDS: Gabapentin 300 MG CAPSULE PO SCH ×2 (17:50→19:35)
[2021-05-16] MEDS: Primidone 50 MG TABLET PO SCH (19:35)
[2021-05-17] MEDS: 0.9 % Sodium Chloride 1,000 ML IVC SCH ×3 (04:53→22:31)
[2021-05-17] MEDS: *HR* Heparin 5,000 UNIT/ML VIAL SQ SCH ×3 (05:50→22:03)
[2021-05-17] MEDS ORDERED: Vancomycin 1,250 MG/262.5 ML IV.SOLN IVPB SCH (07:00)
[2021-05-17] MEDS: cefTRIAXone 2,000 MG in Water for inj. (sterile) 20 ML IVP SCH (07:24)
[2021-05-17 07:50] LABS: Hematocrit 36.7 % (35.3-44.9); Mean Corpuscular HGB Conc 32.2 g/dL (31.6-35.5); Mean Corpuscular Hemoglobin 29.3 pg (28.0-33.3); Mean Corpuscular Volume 91.1 fL (83.0-100.0); Mean Platelet Volume 9.3 fL (9.4-12.4); Platelet Count 186 K/mcL (140-400); Red Blood Count 4.03 M/mcL (3.82-4.97); Red Cell Distribution Width 14.6 % (11.5-14.5); White Blood Count 4.9 K/mcL (4.3-11.1)
[2021-05-17 07:52] LABS: Hemoglobin 11.8 g/dL (11.5-15.4)
[2021-05-17 08:03] LABS: Calcium 9.1 mg/dL (8.6-10.3)
[2021-05-17] MEDS: Aspirin Enteric Coated 81 MG Tablet PO SCH (09:30)
[2021-05-17] MEDS: Famotidine 20 MG TABLET PO SCH (09:30)
[2021-05-17] MEDS: Insulin LISPRO 300 UNITS/3 ML VIAL SUBQ SCH ×4 (09:30→22:02)
[2021-05-17] MEDS: Primidone 50 MG TABLET PO SCH ×3 (09:30→22:04)
[2021-05-17] MEDS: Gabapentin 300 MG CAPSULE PO SCH ×3 (09:31→22:03)
[2021-05-17] MEDS: Latanoprost 2.5 ML BOTTLE BOTH EYES SCH (09:31)
[2021-05-17] MEDS: Loratadine 10 MG TABLET PO SCH (09:31)
[2021-05-17] MEDS: Insulin DETEMIR 100 UNIT/ML X5UNITS SUBQ SCH (09:50)
[2021-05-18] MEDS: 0.9 % Sodium Chloride 1,000 ML IVC SCH (05:15)
[2021-05-18] MEDS: *HR* Heparin 5,000 UNIT/ML VIAL SQ SCH (05:54)
[2021-05-18 07:12] LABS: Hematocrit 31.9 % (35.3-44.9); Mean Corpuscular HGB Conc 31.7 g/dL (31.6-35.5); Mean Corpuscular Hemoglobin 29.3 pg (28.0-33.3); Mean Corpuscular Volume 92.5 fL (83.0-100.0); Mean Platelet Volume 8.9 fL (9.4-12.4); Platelet Count 153 K/mcL (140-400); Red Blood Count 3.45 M/mcL (3.82-4.97); Red Cell Distribution Width 14.5 % (11.5-14.5); White Blood Count 4.2 K/mcL (4.3-11.1)
[2021-05-18 07:15] LABS: Hemoglobin 10.1 g/dL (11.5-15.4)
[2021-05-18 07:32] LABS: BUN/Creatinine Ratio 15 (6-26); Blood Urea Nitrogen 15 mg/dL (8-23); Calcium 8.7 mg/dL (8.6-10.3); Carbon Dioxide 21 mEq/L (23-29); Chloride 108 mEq/L (98-107); Glucose 209 mg/dL (70-105); Osmolality,Calculated 287 (280-300); Potassium 4.3 mEq/L (3.5-5.1); Sodium 135 mEq/L (136-145); eGFR For African Americans > 60 (> 60); eGFR For Non-African Americans 52 (> 60)
[2021-05-18 08:07] VITALS: BP 112/79
[2021-05-18] MEDS: Aspirin Enteric Coated 81 MG Tablet PO SCH (08:23)
[2021-05-18] MEDS: Gabapentin 300 MG CAPSULE PO SCH (08:23)
[2021-05-18] MEDS: Insulin LISPRO 300 UNITS/3 ML VIAL SUBQ SCH (08:24)
[2021-05-18] MEDS: Primidone 50 MG TABLET PO SCH (08:24)
[2021-05-18] MEDS: Famotidine 20 MG TABLET PO SCH (08:24)
[2021-05-18] MEDS: Loratadine 10 MG TABLET PO SCH (08:24)
[2021-05-18] MEDS: Insulin DETEMIR 100 UNIT/ML X5UNITS SUBQ SCH (08:26)
[2021-05-18] MEDS: Latanoprost 2.5 ML BOTTLE BOTH EYES SCH (09:28)
== END 2021-05-18 12:19 | disposition home health service (06) | DRG 463 ==
LOC: CDU 19:30 → EMEROOARM 19:30 → CDU 05-16 06:41 → SUATTDRO 05-16 15:07 → 2ANU 05-17 15:31
PROVIDERS: ADMIT Student in an Organized Health Care Education/Training Program; ATTEND Family Medicine

== ENCOUNTER 2021-06-09 11:02 | Observation (INO) ==
[2021-06-09] MEDS ORDERED: Pantoprazole 40 MG VIAL IVP ONE (11:14)
[2021-06-09] MEDS ORDERED: *HR* Metoprolol 5 MG/5 ML VIAL IVP ONE (11:14)
[2021-06-09 11:39] LABS: Basophils # 0.1 K/mcL (0.0-0.2); Basophils % 0.7 %; Eosinophils # 0.2 K/mcL (0.0-0.6); Eosinophils % 2.1 %; Hematocrit 40.4 % (35.3-44.9); Hemoglobin 12.9 g/dL (11.5-15.4); Immature Granulocytes % 0.6 % (0-4); Lymphocytes # 2.6 K/mcL (0.6-4.6); Lymphocytes % 36.4 %; Mean Corpuscular HGB Conc 31.9 g/dL (31.6-35.5); Mean Corpuscular Hemoglobin 28.8 pg (28.0-33.3); Mean Corpuscular Volume 90.2 fL (83.0-100.0); Mean Platelet Volume 9.1 fL (9.4-12.4); Monocytes # 0.5 K/mcL (0.0-1.3); Monocytes % 6.4 %; Neutrophils # 3.9 K/mcL (1.6-8.9); Platelet Count 194 K/mcL (140-400); Red Blood Count 4.48 M/mcL (3.82-4.97); Red Cell Distribution Width 14.6 % (11.5-14.5); Segmented Neutrophils % 53.8 %; White Blood Count 7.2 K/mcL (4.3-11.1)
[2021-06-09 11:53] LABS: Prothrombin Time 11.5 Seconds (9.4-12.1)
[2021-06-09 11:56] LABS: Activated Partial Thrombo Time 26.1 Seconds (26.0-36.0)
[2021-06-09 11:57] LABS: BUN/Creatinine Ratio 19 (6-26); Blood Urea Nitrogen 26 mg/dL (8-23); Calcium 11.4 mg/dL (8.6-10.3); Carbon Dioxide 24 mEq/L (23-29); Chloride 101 mEq/L (98-107); Glucose 295 mg/dL (70-105); Osmolality,Calculated 292 (280-300); Potassium 3.8 mEq/L (3.5-5.1); Sodium 133 mEq/L (136-145); Troponin I < 0.03 ng/mL (< 0.04); eGFR For African Americans 46 (> 60); eGFR For Non-African Americans 38 (> 60)
[2021-06-09] MEDS ORDERED: Naloxone 0.4 MG/ML INJ IVP PRN (13:22)
[2021-06-09] MEDS ORDERED: Acetaminophen 325 MG TABLET PO PRN (15:12)
[2021-06-09] MEDS ORDERED: Dextrose Gel 15 GM/37.5 ML TUBE PO PRN ×2 (15:13)
[2021-06-09] MEDS ORDERED: D5% in Water 1,000 ML IVC PRN (15:13)
[2021-06-09] MEDS ORDERED: *HR* Dextrose 50 % in Water (Vial) 50 ML VIAL IVP PRN (15:13)
[2021-06-09] MEDS ORDERED: Nitroglycerin 0.4 MG TAB.SUBL SL PRN (15:14)
[2021-06-09] MEDS ORDERED: Perflutren Lipid Microsphere 1.3 ML in 0.9 % Sodium Chloride 8.7 ML IVP PRN (15:14)
[2021-06-09] MEDS: Insulin LISPRO 300 UNITS/3 ML VIAL SUBQ SCH (17:43)
[2021-06-09 18:46] VITALS: O2SAT 92
[2021-06-09] MEDS ORDERED: Insulin LISPRO 300 UNITS/3 ML VIAL SUBQ SCH (21:00)
[2021-06-09] MEDS: Insulin DETEMIR 100 UNIT/ML X5UNITS SUBQ SCH (21:19)
[2021-06-09] MEDS: Primidone 50 MG TABLET PO SCH (21:19)
[2021-06-09] MEDS: Gabapentin 300 MG CAPSULE PO SCH (21:19)
[2021-06-10] MEDS ORDERED: Regadenoson 0.4 MG/5 ML SYRINGE IVP ONE ×2 (06:15→08:32)
[2021-06-10 07:55] LABS: Basophils # 0.1 K/mcL (0.0-0.2); Basophils % 0.7 %; Eosinophils # 0.2 K/mcL (0.0-0.6); Eosinophils % 2.6 %; Hematocrit 41.3 % (35.3-44.9); Immature Granulocytes % 0.4 % (0-4); Lymphocytes # 3.2 K/mcL (0.6-4.6); Lymphocytes % 39.8 %; Mean Corpuscular HGB Conc 31.5 g/dL (31.6-35.5); Mean Corpuscular Hemoglobin 28.8 pg (28.0-33.3); Mean Corpuscular Volume 91.6 fL (83.0-100.0); Mean Platelet Volume 9.5 fL (9.4-12.4); Monocytes # 0.5 K/mcL (0.0-1.3); Monocytes % 6.2 %; Platelet Count 202 K/mcL (140-400); Red Blood Count 4.51 M/mcL (3.82-4.97); Red Cell Distribution Width 14.7 % (11.5-14.5); Segmented Neutrophils % 50.3 %
[2021-06-10 08:18] LABS: BUN/Creatinine Ratio 18 (6-26); Blood Urea Nitrogen 22 mg/dL (8-23); Calcium 10.7 mg/dL (8.6-10.3); Carbon Dioxide 24 mEq/L (23-29); Chloride 105 mEq/L (98-107); Chol/HDL Ratio 9.7 (0-4.9); Cholesterol 290 mg/dL (< 200); Glucose 79 mg/dL (70-105); HDL Cholesterol 30 mg/dL (40-59); Osmolality,Calculated 286 (280-300); Potassium 3.5 mEq/L (3.5-5.1); Sodium 137 mEq/L (136-145); Triglycerides 437 mg/dL (< 150); eGFR For African Americans 52 (> 60); eGFR For Non-African Americans 43 (> 60)
[2021-06-10 08:36] LABS: Estimated Average Glucose 301 mg/dl; Hemoglobin A1C 12.1 %
[2021-06-10] MEDS ORDERED: Dorzolamide/Timolol 1 DROP BOTH EYES SCH (09:00)
[2021-06-10] MEDS ORDERED: Loratadine 10 MG TABLET PO SCH (09:00)
[2021-06-10] MEDS ORDERED: Famotidine 20 MG TABLET PO SCH (09:00)
[2021-06-10] MEDS ORDERED: Cyanocobalamin (B-12) 1,000 MCG TABLET PO SCH (09:00)
[2021-06-10] MEDS ORDERED: Latanoprost 2.5 ML BOTTLE BOTH EYES SCH (09:00)
[2021-06-10] MEDS ORDERED: Aspirin Enteric Coated 81 MG Tablet PO SCH (09:00)
[2021-06-10] MEDS: Insulin LISPRO 300 UNITS/3 ML VIAL SUBQ SCH ×2 (09:23→12:09)
[2021-06-10] MEDS: Primidone 50 MG TABLET PO SCH (10:05)
[2021-06-10] MEDS: Gabapentin 300 MG CAPSULE PO SCH (10:05)
[2021-06-10] MEDS: Insulin DETEMIR 100 UNIT/ML X5UNITS SUBQ SCH (10:54)
[2021-06-10 10:57] VITALS: BP 118/81; PULSE 79; TEMP 97.6
== END 2021-06-10 13:50 | disposition home health service (06) ==
LOC: 3BNU 11:02 → EMEROOARM 11:02 → SUATTDRO 12:38 → 3BNU 13:18
PROVIDERS: ADMIT Internal Medicine; ATTEND Internal Medicine

== ENCOUNTER 2022-01-15 11:09 | Observation (INO) ==
[2022-01-15 15:44] LABS: Basophils # 0.1 K/mcL (0.0-0.2); Basophils % 0.5 %; Eosinophils # 0.1 K/mcL (0.0-0.6); Eosinophils % 0.8 %; Hematocrit 36.7 % (35.3-44.9); Hemoglobin 12.2 g/dL (11.5-15.4); Immature Granulocytes % 1.9 % (0-4); Lymphocytes # 1.5 K/mcL (0.6-4.6); Lymphocytes % 13.3 %; Mean Corpuscular HGB Conc 33.2 g/dL (31.6-35.5); Mean Corpuscular Volume 87.2 fL (83.0-100.0); Mean Platelet Volume 9.1 fL (9.4-12.4); Monocytes # 0.6 K/mcL (0.0-1.3); Monocytes % 5.3 %; Neutrophils # 9.1 K/mcL (1.6-8.9); Platelet Count 254 K/mcL (140-400); Red Blood Count 4.21 M/mcL (3.82-4.97); Red Cell Distribution Width 14.6 % (11.5-14.5); Segmented Neutrophils % 78.2 %; White Blood Count 11.6 K/mcL (4.3-11.1)
[2022-01-15 16:06] LABS: Bacteria,Urine Few per hpf (None-Few); Bilirubin,Urine Negative (Negative); Blood,Urine Moderate (Negative); Budding Yeast,Urine Few per hpf (None Seen); Clarity,Urine Ex.Turbid (Clear); Color,Urine Yellow (Yellow); Glucose,Urine (UA) >=1000 mg/dL (Normal); Ketones,Urine Negative (Negative); Leukocyte Esterase,Urine Large (Negative); Mucus,Urine Few per lpf (None-Few); Nitrite,Urine Positive (Negative); PH,Urine 5.5 pH Units (5.0-8.0); Protein,Urine 30 mg/dL (Neg-Trace); RBC,Urine 30-50 per hpf (0-3); Specific Gravity,Urine 1.017 (1.010-1.025); Urobilinogen,Urine Normal (Normal); WBC,Urine TNTC per hpf (0-3)
[2022-01-15 16:12] LABS: Troponin I 0.03 ng/mL (< 0.04)
[2022-01-15 16:14] LABS: Calcium 10.4 mg/dL (8.6-10.3); Potassium 4.4 mEq/L (3.5-5.1)
[2022-01-15] MEDS ORDERED: cefTRIAXone 1,000 MG in 0.9 % Sodium Chloride 10 ML IVP ONE (16:20)
[2022-01-15] MEDS ORDERED: Ondansetron 4 MG/2 ML VIAL IVP PRN (16:42)
[2022-01-15] MEDS ORDERED: Naloxone 0.4 MG/ML INJ IVP PRN (16:42)
[2022-01-15] MEDS ORDERED: *HR* Dextrose 50 % in Water (Syg) 50 ML SYRINGE IVP PRN (17:56)
[2022-01-15] MEDS ORDERED: Dextrose Gel 15 GM/37.5 ML TUBE PO PRN ×2 (17:56)
[2022-01-15] MEDS ORDERED: D5% in Water 1,000 ML IVC PRN (17:56)
[2022-01-15] MEDS: 0.9 % Sodium Chloride 1,000 ML IVC SCH (18:07)
[2022-01-15] MEDS: Insulin LISPRO 300 UNITS/3 ML VIAL SUBQ SCH ×2 (18:10→20:21)
[2022-01-15 19:37] LABS: Adenovirus Not Detected (Not Detect); Bordetella Pertussis Not Detected (Not Detect); Chlamydophila pneumoniae Not Detected (Not Detect); Coronavirus 229E Not Detected (Not Detect); Coronavirus HKU1 Not Detected (Not Detect); Coronavirus NL63 Not Detected (Not Detect); Coronavirus OC43 Not Detected (Not Detect); Human Metapneumovirus Not Detected (Not Detect); Human Rhinovirus/Enterovirus Not Detected (Not Detect); Influenza A Subtype 2009 H1 Not Detected (Not Detect); Influenza B Not Detected (Not Detect); Mycoplasma pneumoniae Not Detected (Not Detect); Parainfluenza Virus 1 Not Detected (Not Detect); Parainfluenza Virus 2 Not Detected (Not Detect); Parainfluenza Virus 3 Not Detected (Not Detect); Parainfluenza Virus 4 Not Detected (Not Detect); Respiratory Syncytial Virus Not Detected (Not Detect); SARS-CoV-2 Not Detected (Not Detect)
[2022-01-16 02:47] LABS: Hematocrit 33.4 % (35.3-44.9); Hemoglobin 10.9 g/dL (11.5-15.4); Mean Corpuscular HGB Conc 32.6 g/dL (31.6-35.5); Mean Corpuscular Hemoglobin 29.1 pg (28.0-33.3); Mean Corpuscular Volume 89.1 fL (83.0-100.0); Mean Platelet Volume 9.3 fL (9.4-12.4); Platelet Count 219 K/mcL (140-400); Red Blood Count 3.75 M/mcL (3.82-4.97); Red Cell Distribution Width 14.7 % (11.5-14.5); White Blood Count 11.3 K/mcL (4.3-11.1)
[2022-01-16 03:15] LABS: Calcium 9.7 mg/dL (8.6-10.3); Potassium 4.1 mEq/L (3.5-5.1)
[2022-01-16] MEDS: 0.9 % Sodium Chloride 1,000 ML IVC SCH ×3 (03:36→23:58)
[2022-01-16] MEDS: cefTRIAXone 1,000 MG in 0.9 % Sodium Chloride 10 ML IVP SCH (08:22)
[2022-01-16] MEDS: Insulin LISPRO 300 UNITS/3 ML VIAL SUBQ SCH ×4 (08:23→20:30)
[2022-01-16] MEDS: Acetaminophen 325 MG TABLET PO PRN ×2 (08:24→18:36)
[2022-01-16] MEDS: Loratadine 10 MG TABLET PO SCH (16:54)
[2022-01-16] MEDS ORDERED: traZODone 50 MG TABLET PO PRN (21:02)
[2022-01-17 01:42] LABS: Calcium 9.4 mg/dL (8.6-10.3); Potassium 4.5 mEq/L (3.5-5.1)
[2022-01-17 02:12] LABS: Hematocrit 31.4 % (35.3-44.9); Hemoglobin 10.1 g/dL (11.5-15.4); Mean Corpuscular HGB Conc 32.2 g/dL (31.6-35.5); Mean Corpuscular Hemoglobin 28.8 pg (28.0-33.3); Mean Corpuscular Volume 89.5 fL (83.0-100.0); Mean Platelet Volume 9.1 fL (9.4-12.4); Platelet Count 204 K/mcL (140-400); Red Blood Count 3.51 M/mcL (3.82-4.97); Red Cell Distribution Width 14.8 % (11.5-14.5); White Blood Count 8.2 K/mcL (4.3-11.1)
[2022-01-17 03:16] VITALS: PULSE 61
[2022-01-17 03:44] LABS: Estimated Average Glucose 335 mg/dl; Hemoglobin A1C 13.3 %
[2022-01-17 07:39] VITALS: BP 158/84; TEMP 97.4; O2SAT 99
[2022-01-17] MEDS: Insulin LISPRO 300 UNITS/3 ML VIAL SUBQ SCH ×2 (07:57→11:10)
[2022-01-17] MEDS: cefTRIAXone 1,000 MG in 0.9 % Sodium Chloride 10 ML IVP SCH (07:57)
[2022-01-17] MEDS: Loratadine 10 MG TABLET PO SCH (07:58)
[2022-01-17] MEDS: Acetaminophen 325 MG TABLET PO PRN (07:58)
[2022-01-17 09:11] LABS: Influenza A PCR Negative (Negative); Influenza B PCR Negative (Negative); Resp. Syncytial Virus PCR Negative (Negative)
[2022-01-17 09:12] LABS: SARS-CoV-2 by PCR (In House) Negative (Negative)
[2022-01-17] MEDS: 0.9 % Sodium Chloride 1,000 ML IVC SCH (10:05)
== END 2022-01-17 12:12 ==
LOC: EMEROOARM 11:09 → 3BNU 11:09 → SUATTDRO 16:55 → 3BNU 17:24
PROVIDERS: ADMIT Internal Medicine; ATTEND Internal Medicine

== ENCOUNTER 2022-03-28 09:22 | Inpatient (IN) ==
[2022-03-28] MEDS ORDERED: Azithromycin 500 MG in 0.9 % Sodium Chloride 250 ML IVPB ONE (09:40)
[2022-03-28] MEDS ORDERED: cefTRIAXone 1,000 MG in 0.9 % Sodium Chloride 10 ML IVP ONE (09:40)
[2022-03-28 10:21] LABS: Bacteria,Urine Many per hpf (None-Few); Bilirubin,Urine Negative (Negative); Blood,Urine Trace (Negative); Clarity,Urine Turbid (Clear); Color,Urine Yellow (Yellow); Glucose,Urine (UA) 200 mg/dL (Normal); Ketones,Urine Negative (Negative); Leukocyte Esterase,Urine Large (Negative); Mucus,Urine Few per lpf (None-Few); Nitrite,Urine Positive (Negative); PH,Urine 5.5 pH Units (5.0-8.0); Protein,Urine 30 mg/dL (Neg-Trace); Squamous Epithelial Cell,Urine Moderate per hpf (None-Few); Urobilinogen,Urine Normal (Normal); WBC,Urine 50-100 per hpf (0-3)
[2022-03-28] MEDS ORDERED: 0.9 % Sodium Chloride 1,000 ML IVC ONE (10:25)
[2022-03-28 10:34] LABS: Basophils % 0.3 %; Eosinophils % 0.2 %; Hematocrit 32.1 % (35.3-44.9); Immature Granulocytes % 0.9 % (0-4); Lymphocytes # 0.9 K/mcL (0.6-4.6); Lymphocytes % 7.1 %; Mean Corpuscular HGB Conc 34.3 g/dL (31.6-35.5); Mean Corpuscular Hemoglobin 29.6 pg (28.0-33.3); Mean Corpuscular Volume 86.5 fL (83.0-100.0); Mean Platelet Volume 9.3 fL (9.4-12.4); Monocytes # 0.6 K/mcL (0.0-1.3); Monocytes % 4.3 %; Neutrophils # 11.5 K/mcL (1.6-8.9); Platelet Count 187 K/mcL (140-400); Red Blood Count 3.71 M/mcL (3.82-4.97); Red Cell Distribution Width 15.9 % (11.5-14.5); Segmented Neutrophils % 87.2 %; White Blood Count 13.2 K/mcL (4.3-11.1)
[2022-03-28 10:36] LABS: VBG HCO3 21 mEq/L (21-27); VBG PCO2 29 mmHg (41-51); VBG PH 7.47 pH Units (7.32-7.42); VBG PO2 77 mmHg (25-50)
[2022-03-28 10:44] LABS: INR 1.1; Prothrombin Time 12.7 Seconds (9.4-12.1)
[2022-03-28 10:47] LABS: Activated Partial Thrombo Time 31.8 Seconds (26.0-36.0)
[2022-03-28 10:56] LABS: Albumin 3.4 g/dL (3.5-5.7); Albumin/Globulin Ratio 0.8 (1.1-2.2); Bilirubin,Direct 0.2 mg/dL (0.0-0.2); Bilirubin,Indirect 0.6 mg/dL (0.0-1.0); Bilirubin,Total 0.8 mg/dL (0.3-1.0); Calcium 9.8 mg/dL (8.6-10.3); Globulin 4.2 g/dL (2.4-3.5); Magnesium 1.6 mg/dL (1.6-2.6); Phosphorous 2.7 mg/dL (2.7-4.5); Potassium 4.8 mEq/L (3.5-5.1); Total Protein 7.6 g/dL (6.4-8.9); Troponin I 0.03 ng/mL (< 0.04)
[2022-03-28 12:09] LABS: Thyroid Stimulating Hormone 4.056 mcIU/mL (0.340-5.600)
[2022-03-28 13:02] LABS: Influenza A PCR Negative (Negative); Influenza B PCR Negative (Negative); Resp. Syncytial Virus PCR Negative (Negative)
[2022-03-28 13:12] LABS: SARS-CoV-2 by PCR (In House) Negative (Negative)
[2022-03-28] MEDS ORDERED: Acetaminophen 325 MG TABLET PO PRN (15:03)
[2022-03-28] MEDS ORDERED: Naloxone 0.4 MG/ML INJ IVP PRN (15:03)
[2022-03-28] MEDS ORDERED: Ondansetron 4 MG/2 ML VIAL IVP PRN (15:03)
[2022-03-28] MEDS ORDERED: D5% in Water 1,000 ML IVC PRN (15:05)
[2022-03-28] MEDS ORDERED: Dextrose 4 GM Chewable Tablets PO PRN ×2 (15:05)
[2022-03-28] MEDS ORDERED: *HR* Dextrose 50 % in Water (Syg) 50 ML SYRINGE IVP PRN (15:05)
[2022-03-28] MEDS: Insulin LISPRO 300 UNITS/3 ML VIAL SUBQ SCH (16:46)
[2022-03-28] MEDS: 0.9 % Sodium Chloride 1,000 ML IVC SCH ×2 (16:46→22:30)
[2022-03-28] MEDS: traZODone 50 MG TABLET PO SCH (21:26)
[2022-03-28] MEDS: Insulin DETEMIR 100 UNIT/ML X5UNITS SUBQ SCH (21:26)
[2022-03-28] MEDS: Cyanocobalamin (B-12) 1,000 MCG TABLET PO SCH (21:26)
[2022-03-28] MEDS: Primidone 50 MG TABLET PO SCH (21:26)
[2022-03-28] MEDS: Melatonin 3 MG TABLET PO SCH (21:26)
[2022-03-29 02:08] LABS: Basophils % 0.3 %; Eosinophils # 0.1 K/mcL (0.0-0.6); Eosinophils % 1.2 %; Hematocrit 29.1 % (35.3-44.9); Immature Granulocytes % 0.5 % (0-4); Lymphocytes # 0.9 K/mcL (0.6-4.6); Lymphocytes % 15.6 %; Mean Corpuscular Hemoglobin 27.7 pg (28.0-33.3); Mean Corpuscular Volume 86.6 fL (83.0-100.0); Mean Platelet Volume 8.9 fL (9.4-12.4); Monocytes # 0.4 K/mcL (0.0-1.3); Monocytes % 6.8 %; Neutrophils # 4.5 K/mcL (1.6-8.9); Platelet Count 131 K/mcL (140-400); Red Blood Count 3.36 M/mcL (3.82-4.97); Red Cell Distribution Width 15.9 % (11.5-14.5); Segmented Neutrophils % 75.6 %
[2022-03-29 02:11] LABS: Hemoglobin 9.3 g/dL (11.5-15.4); White Blood Count 5.9 K/mcL (4.3-11.1)
[2022-03-29 02:21] LABS: Calcium 8.8 mg/dL (8.6-10.3); Magnesium 1.6 mg/dL (1.6-2.6); Phosphorous 2.2 mg/dL (2.7-4.5); Potassium 4.1 mEq/L (3.5-5.1)
[2022-03-29] MEDS: Insulin LISPRO 300 UNITS/3 ML VIAL SUBQ SCH ×3 (07:35→17:06)
[2022-03-29] MEDS: Aspirin Enteric Coated 81 MG Tablet PO SCH (09:07)
[2022-03-29] MEDS: Sennosides 8.6 MG TABLET PO SCH (09:07)
[2022-03-29] MEDS: Famotidine 20 MG TABLET PO SCH (09:07)
[2022-03-29] MEDS: cefTRIAXone 2,000 MG in 0.9 % Sodium Chloride 20 ML IVP SCH (09:08)
[2022-03-29] MEDS: Loratadine 10 MG TABLET PO SCH (09:08)
[2022-03-29] MEDS: Insulin DETEMIR 100 UNIT/ML X5UNITS SUBQ SCH ×2 (09:23→21:14)
[2022-03-29] MEDS: *HR* OxyCODONE Immed Rel 5 MG TABLET PO PRN (17:10)
[2022-03-29] MEDS: Cyanocobalamin (B-12) 1,000 MCG TABLET PO SCH (19:40)
[2022-03-29] MEDS: traZODone 50 MG TABLET PO SCH (19:40)
[2022-03-29] MEDS: Primidone 50 MG TABLET PO SCH (19:40)
[2022-03-29] MEDS: Melatonin 3 MG TABLET PO SCH (19:41)
[2022-03-30 02:30] LABS: Hematocrit 28.4 % (35.3-44.9); Hemoglobin 9.3 g/dL (11.5-15.4); Mean Corpuscular HGB Conc 32.7 g/dL (31.6-35.5); Mean Corpuscular Hemoglobin 28.4 pg (28.0-33.3); Mean Corpuscular Volume 86.9 fL (83.0-100.0); Mean Platelet Volume 8.9 fL (9.4-12.4); Platelet Count 155 K/mcL (140-400); Red Blood Count 3.27 M/mcL (3.82-4.97); Red Cell Distribution Width 16.1 % (11.5-14.5)
[2022-03-30 02:33] LABS: Calcium 9.1 mg/dL (8.6-10.3); Potassium 3.6 mEq/L (3.5-5.1)
[2022-03-30] MEDS: Famotidine 20 MG TABLET PO SCH (08:13)
[2022-03-30] MEDS: Sennosides 8.6 MG TABLET PO SCH (08:13)
[2022-03-30] MEDS: Loratadine 10 MG TABLET PO SCH (08:13)
[2022-03-30] MEDS: cefTRIAXone 2,000 MG in 0.9 % Sodium Chloride 20 ML IVP SCH (08:14)
[2022-03-30] MEDS: Aspirin Enteric Coated 81 MG Tablet PO SCH (08:14)
[2022-03-30] MEDS: Insulin LISPRO 300 UNITS/3 ML VIAL SUBQ SCH ×3 (08:15→16:48)
[2022-03-30] MEDS: Insulin DETEMIR 100 UNIT/ML X5UNITS SUBQ SCH ×2 (08:18→19:48)
[2022-03-30] MEDS: *HR* OxyCODONE Immed Rel 5 MG TABLET PO PRN (16:31)
[2022-03-30] MEDS: Cyanocobalamin (B-12) 1,000 MCG TABLET PO SCH (19:44)
[2022-03-30] MEDS: traZODone 50 MG TABLET PO SCH (19:45)
[2022-03-30] MEDS: Melatonin 3 MG TABLET PO SCH (19:45)
[2022-03-30] MEDS: Primidone 50 MG TABLET PO SCH (19:45)
[2022-03-31] MEDS: cefTRIAXone 2,000 MG in 0.9 % Sodium Chloride 20 ML IVP SCH (09:31)
[2022-03-31] MEDS: Loratadine 10 MG TABLET PO SCH (09:32)
[2022-03-31] MEDS: Sennosides 8.6 MG TABLET PO SCH (09:32)
[2022-03-31] MEDS: Famotidine 20 MG TABLET PO SCH (09:32)
[2022-03-31] MEDS: Aspirin Enteric Coated 81 MG Tablet PO SCH (09:32)
[2022-03-31] MEDS: Insulin LISPRO 300 UNITS/3 ML VIAL SUBQ SCH ×3 (09:33→16:50)
[2022-03-31] MEDS: Insulin DETEMIR 100 UNIT/ML X5UNITS SUBQ SCH ×2 (09:45→21:21)
[2022-03-31 11:23] LABS: Calcium 10.1 mg/dL (8.6-10.3); Potassium 4.3 mEq/L (3.5-5.1)
[2022-03-31] MEDS: *HR* Heparin 5,000 UNIT/ML VIAL SQ SCH ×2 (16:49→21:15)
[2022-03-31] MEDS ORDERED: Gabapentin 300 MG CAPSULE PO SCH (21:00)
[2022-03-31] MEDS: traZODone 50 MG TABLET PO SCH (21:14)
[2022-03-31] MEDS: Primidone 50 MG TABLET PO SCH (21:15)
[2022-03-31] MEDS: Melatonin 3 MG TABLET PO SCH (21:15)
[2022-03-31] MEDS: Cyanocobalamin (B-12) 1,000 MCG TABLET PO SCH (21:15)
[2022-04-01] MEDS: *HR* Heparin 5,000 UNIT/ML VIAL SQ SCH (05:46)
[2022-04-01 07:14] VITALS: BP 119/48; PULSE 62; TEMP 97.7; O2SAT 91
[2022-04-01] MEDS ORDERED: cefTRIAXone 1,000 MG in 0.9 % Sodium Chloride 10 ML IVP SCH (09:00)
[2022-04-01] MEDS ORDERED: Famotidine 20 MG TABLET PO SCH (09:00)
[2022-04-01] MEDS: Sennosides 8.6 MG TABLET PO SCH (10:11)
[2022-04-01] MEDS: Loratadine 10 MG TABLET PO SCH (10:11)
[2022-04-01] MEDS: Insulin LISPRO 300 UNITS/3 ML VIAL SUBQ SCH ×2 (10:11→12:12)
[2022-04-01] MEDS: Aspirin Enteric Coated 81 MG Tablet PO SCH (10:11)
[2022-04-01] MEDS: Gabapentin 300 MG CAPSULE PO SCH ×2 (10:16→12:17)
[2022-04-01] MEDS: Insulin DETEMIR 100 UNIT/ML X5UNITS SUBQ SCH (12:16)
[2022-04-01 12:39] LABS: Adenovirus Not Detected (Not Detect); Bordetella Pertussis Not Detected (Not Detect); Chlamydophila pneumoniae Not Detected (Not Detect); Coronavirus 229E Not Detected (Not Detect); Coronavirus HKU1 Not Detected (Not Detect); Coronavirus NL63 Not Detected (Not Detect); Coronavirus OC43 Not Detected (Not Detect); Human Metapneumovirus Not Detected (Not Detect); Human Rhinovirus/Enterovirus Not Detected (Not Detect); Influenza A Subtype 2009 H1 Not Detected (Not Detect); Influenza B Not Detected (Not Detect); Mycoplasma pneumoniae Not Detected (Not Detect); Parainfluenza Virus 1 Not Detected (Not Detect); Parainfluenza Virus 2 Not Detected (Not Detect); Parainfluenza Virus 3 Not Detected (Not Detect); Parainfluenza Virus 4 Not Detected (Not Detect); Respiratory Syncytial Virus Not Detected (Not Detect); SARS-CoV-2 Not Detected (Not Detect)
== END 2022-04-01 15:01 | DRG 720 ==
LOC: 2NENU 09:22 → EMEROOARM 09:22 → 2NENU 16:07
PROVIDERS: ADMIT Student in an Organized Health Care Education/Training Program; ATTEND Student in an Organized Health Care Education/Training Program